=== PATIENT | male | born 1955 | race Caucasian/White ===

== ENCOUNTER 2018-06-26 12:03 | Inpatient (IN) ==
[2018-06-26] MEDS: PANTOPRAZOLE 40 MG TABLET PO SCH (14:56)
[2018-06-26] MEDS: FUROSEMIDE 40 MG/4 ML VIAL IV SCH (14:57)
[2018-06-26 15:14] LABS: Apearance,Urine CLEAR (Clear); Bacteria,Urine Occasional /HPF (Few); Bilirubin,Urine Negative (Negative); Blood, Urine Moderate mg/dL (Negative); Glucose,Urine (UA) Negative (Negative); Ketones,Urine Negative (Negative); Nitrite,Urine Negative (Negative); Protein,Urine Negative; RBC,Urine <1 /HPF (0-4); Urine Color Straw (Yellow); Urine Specific Gravity 1.002 (1.001-1.035); Urine Urobilinogen < 2.0 EU/DL (0.2-1.0); WBC,Urine <1 /HPF (0-6)
[2018-06-26] MEDS: DUTASTERIDE 0.5 MG CAPSULE PO SCH (16:33)
[2018-06-26] MEDS: DOCUSATE SODIUM 100 MG CAPSULE PO SCH (23:18)
[2018-06-26] MEDS: ENOXAPARIN 30 MG/0.3 ML SYRINGE SUBCUT SCH (23:18)
[2018-06-26] MEDS: TAMSULOSIN 0.4 MG CAPSULE PO SCH (23:18)
[2018-06-27 04:07] LABS: Basophils % 0.4 % (0.0-0.8); Eosinophils # 0.2 10*3/uL (0.0-0.87); Eosinophils % 1.9 % (0.00-10.9); Hematocrit 33.3 VOL% (42.0-52.0); Hemoglobin 11.5 GM/DL (14.0-18.0); Immature Granulocytes % 0.4 %; Immature Granulocytes Absolute 0.03 #; Lymphocytes # 1.3 10*3/uL (1.4-4.0); Lymphocytes % 15.8 % (21.2-54.2); Mean Corpuscular HGB Conc 34.5 GM/DL (32-36); Mean Corpuscular Hemoglobin 32 PG (27-34); Mean Corpuscular Volume 91.5 FL (87-102); Mean Platelet Volume 11.8 FL (9.6-12.0); Monocytes # 0.6 10*3/uL (0.11-0.8); Monocytes % 7.2 % (1.7-12.7); Neutrophils # 5.9 10*3/uL (1.4-7.4); Neutrophils % 74.3 % (38.7-73.9); Platelet Count 164 T/CUMM (130-400); Red Blood Count 3.64 MC/CUMM (3.8-5.5); Red Cell Distribution Width 12.7 % (9.3-17.3); White Blood Count 7.9 T/CUMM (4-12)
[2018-06-27 05:04] LABS: Bilirubin,Total 0.6 MG/DL (0.2-1.0); Calcium 8.1 MG/DL (8.5-10.1); Total Protein 5.9 G/DL (6.4-8.3)
[2018-06-27 05:06] LABS: Potassium 3.6 MMOL/L (3.5-5.1)
[2018-06-27 05:07] LABS: Osmolality,Calculated 284.5 MOS/KG (273-304)
[2018-06-27] MEDS ORDERED: PYG PO SCH (09:00)
[2018-06-27] MEDS ORDERED: VIT E PO SCH (09:00)
[2018-06-27] MEDS ORDERED: BETA PO SCH (09:00)
[2018-06-27] MEDS ORDERED: SOD SEL PO SCH (09:00)
[2018-06-27] MEDS ORDERED: SAW PO SCH (09:00)
[2018-06-27] MEDS ORDERED: LYC PO SCH (09:00)
[2018-06-27] MEDS: DOCUSATE SODIUM 100 MG CAPSULE PO SCH ×2 (09:29→21:29)
[2018-06-27] MEDS: TAMSULOSIN 0.4 MG CAPSULE PO SCH ×3 (09:29→21:29)
[2018-06-27] MEDS: PANTOPRAZOLE 40 MG TABLET PO SCH (09:29)
[2018-06-27] MEDS: FUROSEMIDE 40 MG/4 ML VIAL IV SCH (09:29)
[2018-06-27] MEDS: DUTASTERIDE 0.5 MG CAPSULE PO SCH (09:29)
[2018-06-27] MEDS: GABAPENTIN 300 MG CAPSULE PO SCH ×3 (09:33→21:29)
[2018-06-27] MEDS: ATENOLOL 25 MG TABLET PO SCH (09:33)
[2018-06-27] MEDS: SIMVASTATIN 20 MG TABLET PO SCH (21:29)
[2018-06-27] MEDS: SERTRALINE 50 MG TABLET PO SCH (21:29)
[2018-06-27] MEDS: ENOXAPARIN 30 MG/0.3 ML SYRINGE SUBCUT SCH (21:29)
[2018-06-27] MEDS: EZETIMIBE 10 MG TABLET PO SCH (21:29)
[2018-06-28 02:52] LABS: Basophils % 0.6 % (0.0-0.8); Eosinophils # 0.2 10*3/uL (0.0-0.87); Hematocrit 33.2 VOL% (42.0-52.0); Hemoglobin 11.2 GM/DL (14.0-18.0); Immature Granulocytes % 0.3 %; Immature Granulocytes Absolute 0.02 #; Lymphocytes # 1.5 10*3/uL (1.4-4.0); Mean Corpuscular HGB Conc 33.7 GM/DL (32-36); Mean Corpuscular Hemoglobin 32 PG (27-34); Mean Corpuscular Volume 93.3 FL (87-102); Mean Platelet Volume 11.9 FL (9.6-12.0); Monocytes # 0.6 10*3/uL (0.11-0.8); Neutrophils # 4.3 10*3/uL (1.4-7.4); Neutrophils % 64.1 % (38.7-73.9); Platelet Count 161 T/CUMM (130-400); Red Blood Count 3.56 MC/CUMM (3.8-5.5); Red Cell Distribution Width 12.8 % (9.3-17.3); White Blood Count 6.6 T/CUMM (4-12)
[2018-06-28 03:24] LABS: Calcium 8.2 MG/DL (8.5-10.1); Calcium 8.3 MG/DL (8.5-10.1); Osmolality,Calculated 281.1 MOS/KG (273-304); Potassium 3.4 MMOL/L (3.5-5.1)
[2018-06-28] MEDS: FUROSEMIDE 40 MG/4 ML VIAL IV SCH (08:40)
[2018-06-28] MEDS: DUTASTERIDE 0.5 MG CAPSULE PO SCH (08:41)
[2018-06-28] MEDS: PANTOPRAZOLE 40 MG TABLET PO SCH (08:41)
[2018-06-28] MEDS: TAMSULOSIN 0.4 MG CAPSULE PO SCH ×3 (08:41→20:49)
[2018-06-28] MEDS: POTASSIUM CHLORIDE 20 MEQ TABLET PO PRN ×2 (08:41→14:53)
[2018-06-28] MEDS: DOCUSATE SODIUM 100 MG CAPSULE PO SCH ×3 (08:41→20:50)
[2018-06-28] MEDS: GABAPENTIN 300 MG CAPSULE PO SCH ×3 (08:41→20:50)
[2018-06-28] MEDS: ASPIRIN EC 81 MG TABLET PO SCH (08:42)
[2018-06-28] MEDS: ATENOLOL 25 MG TABLET PO SCH (08:43)
[2018-06-28] MEDS: ACETAMINOPHEN 325 MG TABLET PO PRN (14:31)
[2018-06-28] MEDS: SERTRALINE 50 MG TABLET PO SCH (20:49)
[2018-06-28] MEDS: SIMVASTATIN 20 MG TABLET PO SCH (20:49)
[2018-06-28] MEDS: EZETIMIBE 10 MG TABLET PO SCH (20:49)
[2018-06-28] MEDS: ENOXAPARIN 30 MG/0.3 ML SYRINGE SUBCUT SCH (20:50)
[2018-06-29 04:33] LABS: Basophils # 0.1 10*3/uL (0.0-0.2); Basophils % 0.7 % (0.0-0.8); Eosinophils # 0.3 10*3/uL (0.0-0.87); Eosinophils % 3.9 % (0.00-10.9); Hematocrit 34.8 VOL% (42.0-52.0); Hemoglobin 11.8 GM/DL (14.0-18.0); Immature Granulocytes % 0.6 %; Immature Granulocytes Absolute 0.04 #; Lymphocytes # 1.3 10*3/uL (1.4-4.0); Lymphocytes % 19.9 % (21.2-54.2); Mean Corpuscular HGB Conc 33.9 GM/DL (32-36); Mean Corpuscular Hemoglobin 32 PG (27-34); Mean Corpuscular Volume 93.3 FL (87-102); Mean Platelet Volume 11.6 FL (9.6-12.0); Monocytes # 0.6 10*3/uL (0.11-0.8); Monocytes % 8.9 % (1.7-12.7); Neutrophils # 4.5 10*3/uL (1.4-7.4); Platelet Count 180 T/CUMM (130-400); Red Blood Count 3.73 MC/CUMM (3.8-5.5); White Blood Count 6.8 T/CUMM (4-12)
[2018-06-29 04:58] LABS: Calcium 8.6 MG/DL (8.5-10.1); Osmolality,Calculated 286.7 MOS/KG (273-304)
[2018-06-29] MEDS: GABAPENTIN 300 MG CAPSULE PO SCH ×3 (08:39→21:02)
[2018-06-29] MEDS: ATENOLOL 25 MG TABLET PO SCH (08:40)
[2018-06-29] MEDS: TAMSULOSIN 0.4 MG CAPSULE PO SCH ×3 (08:40→21:02)
[2018-06-29] MEDS: DUTASTERIDE 0.5 MG CAPSULE PO SCH (08:40)
[2018-06-29] MEDS: DOCUSATE SODIUM 100 MG CAPSULE PO SCH ×2 (08:40→21:02)
[2018-06-29] MEDS: ASPIRIN EC 81 MG TABLET PO SCH (08:40)
[2018-06-29] MEDS: PANTOPRAZOLE 40 MG TABLET PO SCH (08:40)
[2018-06-29] MEDS: ENOXAPARIN 30 MG/0.3 ML SYRINGE SUBCUT SCH (21:02)
[2018-06-29] MEDS: SERTRALINE 50 MG TABLET PO SCH (21:02)
[2018-06-29] MEDS: SIMVASTATIN 20 MG TABLET PO SCH (21:02)
[2018-06-29] MEDS: EZETIMIBE 10 MG TABLET PO SCH (21:02)
[2018-06-30 04:04] LABS: Basophils % 0.6 % (0.0-0.8); Eosinophils # 0.2 10*3/uL (0.0-0.87); Eosinophils % 2.6 % (0.00-10.9); Hematocrit 32.9 VOL% (42.0-52.0); Hemoglobin 11.1 GM/DL (14.0-18.0); Immature Granulocytes % 0.4 %; Immature Granulocytes Absolute 0.03 #; Lymphocytes # 1.3 10*3/uL (1.4-4.0); Mean Corpuscular HGB Conc 33.7 GM/DL (32-36); Mean Corpuscular Hemoglobin 32 PG (27-34); Mean Corpuscular Volume 93.7 FL (87-102); Mean Platelet Volume 11.6 FL (9.6-12.0); Monocytes # 0.6 10*3/uL (0.11-0.8); Monocytes % 7.7 % (1.7-12.7); Neutrophils # 5.1 10*3/uL (1.4-7.4); Neutrophils % 70.7 % (38.7-73.9); Platelet Count 166 T/CUMM (130-400); Red Blood Count 3.51 MC/CUMM (3.8-5.5); Red Cell Distribution Width 13.1 % (9.3-17.3); White Blood Count 7.2 T/CUMM (4-12)
[2018-06-30 04:22] LABS: Calcium 8.5 MG/DL (8.5-10.1); Osmolality,Calculated 288.7 MOS/KG (273-304); Potassium 4.1 MMOL/L (3.5-5.1)
[2018-06-30] MEDS: SODIUM CHLORIDE 0.9% 1,000 ML IV SCH ×2 (09:43→22:45)
[2018-06-30] MEDS: DUTASTERIDE 0.5 MG CAPSULE PO SCH (09:52)
[2018-06-30] MEDS: DOCUSATE SODIUM 100 MG CAPSULE PO SCH ×2 (09:52→21:17)
[2018-06-30] MEDS: ASPIRIN EC 81 MG TABLET PO SCH (09:52)
[2018-06-30] MEDS: TAMSULOSIN 0.4 MG CAPSULE PO SCH ×3 (09:52→21:17)
[2018-06-30] MEDS: ATENOLOL 25 MG TABLET PO SCH (09:53)
[2018-06-30] MEDS: PANTOPRAZOLE 40 MG TABLET PO SCH (09:53)
[2018-06-30] MEDS: GABAPENTIN 300 MG CAPSULE PO SCH ×3 (09:53→21:17)
[2018-06-30] MEDS: EZETIMIBE 10 MG TABLET PO SCH (21:17)
[2018-06-30] MEDS: SIMVASTATIN 20 MG TABLET PO SCH (21:17)
[2018-06-30] MEDS: SERTRALINE 50 MG TABLET PO SCH (21:17)
[2018-06-30] MEDS: ENOXAPARIN 30 MG/0.3 ML SYRINGE SUBCUT SCH (21:17)
[2018-07-01 04:15] LABS: Calcium 8.2 MG/DL (8.5-10.1); Osmolality,Calculated 291.5 MOS/KG (273-304); Potassium 4.5 MMOL/L (3.5-5.1)
[2018-07-01] MEDS: ASPIRIN EC 81 MG TABLET PO SCH (08:28)
[2018-07-01] MEDS: GABAPENTIN 300 MG CAPSULE PO SCH ×3 (08:28→21:27)
[2018-07-01] MEDS: DUTASTERIDE 0.5 MG CAPSULE PO SCH (08:29)
[2018-07-01] MEDS: TAMSULOSIN 0.4 MG CAPSULE PO SCH ×3 (08:29→21:20)
[2018-07-01] MEDS: PANTOPRAZOLE 40 MG TABLET PO SCH (08:29)
[2018-07-01] MEDS: ATENOLOL 25 MG TABLET PO SCH (08:29)
[2018-07-01] MEDS: DOCUSATE SODIUM 100 MG CAPSULE PO SCH ×2 (08:29→21:20)
[2018-07-01] MEDS: SODIUM CHLORIDE 0.9% 1,000 ML IV SCH (12:26)
[2018-07-01 16:18] LABS: Apearance,Urine CLEAR (Clear); Bilirubin,Urine Negative (Negative); Blood, Urine Large mg/dL (Negative); Glucose,Urine (UA) Negative (Negative); Ketones,Urine Negative (Negative); Nitrite,Urine Negative (Negative); Protein,Urine 100 MG/DL; RBC,Urine 40 /HPF (0-4); Urine Specific Gravity 1.004 (1.001-1.035); Urine Urobilinogen < 2.0 EU/DL (0.2-1.0); WBC,Urine 3 /HPF (0-6)
[2018-07-01 16:19] LABS: Urine Color Red (Yellow)
[2018-07-01] MEDS: EZETIMIBE 10 MG TABLET PO SCH (21:20)
[2018-07-01] MEDS: SERTRALINE 50 MG TABLET PO SCH (21:20)
[2018-07-01] MEDS: SIMVASTATIN 20 MG TABLET PO SCH (21:20)
[2018-07-01] MEDS: ENOXAPARIN 30 MG/0.3 ML SYRINGE SUBCUT SCH (21:27)
[2018-07-02] MEDS: SODIUM CHLORIDE 0.9% 1,000 ML IV SCH ×2 (01:15→16:03)
[2018-07-02 03:34] LABS: Calcium 8.1 MG/DL (8.5-10.1); Osmolality,Calculated 297.1 MOS/KG (273-304); Potassium 4.7 MMOL/L (3.5-5.1)
[2018-07-02] MEDS: GABAPENTIN 300 MG CAPSULE PO SCH ×3 (08:36→20:50)
[2018-07-02] MEDS: DOCUSATE SODIUM 100 MG CAPSULE PO SCH ×2 (08:37→20:50)
[2018-07-02] MEDS: DUTASTERIDE 0.5 MG CAPSULE PO SCH (08:37)
[2018-07-02] MEDS: PANTOPRAZOLE 40 MG TABLET PO SCH (08:37)
[2018-07-02] MEDS: ATENOLOL 25 MG TABLET PO SCH (08:37)
[2018-07-02] MEDS: TAMSULOSIN 0.4 MG CAPSULE PO SCH ×3 (08:37→20:50)
[2018-07-02] MEDS: ASPIRIN EC 81 MG TABLET PO SCH (08:37)
[2018-07-02] MEDS ORDERED: FUROSEMIDE 40 MG/4 ML VIAL IV ONE (13:01)
[2018-07-02] MEDS ORDERED: ALBUTEROL 1.25 MG/3 ML NEB RESP TX PRN (13:02)
[2018-07-02] MEDS: ALBUTEROL 1.25 MG/3 ML NEB RESP TX SCH (18:56)
[2018-07-02] MEDS: EZETIMIBE 10 MG TABLET PO SCH (20:50)
[2018-07-02] MEDS: SIMVASTATIN 20 MG TABLET PO SCH (20:50)
[2018-07-02] MEDS: SERTRALINE 50 MG TABLET PO SCH (20:50)
[2018-07-02] MEDS: ENOXAPARIN 30 MG/0.3 ML SYRINGE SUBCUT SCH (20:50)
[2018-07-03 07:02] LABS: Basophils % 0.5 % (0.0-0.8); Eosinophils # 0.2 10*3/uL (0.0-0.87); Eosinophils % 2.6 % (0.00-10.9); Hematocrit 32.8 VOL% (42.0-52.0); Hemoglobin 10.7 GM/DL (14.0-18.0); Immature Granulocytes % 0.5 %; Immature Granulocytes Absolute 0.03 #; Lymphocytes # 0.9 10*3/uL (1.4-4.0); Lymphocytes % 14.2 % (21.2-54.2); Mean Corpuscular HGB Conc 32.6 GM/DL (32-36); Mean Corpuscular Hemoglobin 31 PG (27-34); Mean Corpuscular Volume 95.6 FL (87-102); Mean Platelet Volume 11.2 FL (9.6-12.0); Monocytes # 0.4 10*3/uL (0.11-0.8); Monocytes % 6.3 % (1.7-12.7); Neutrophils # 4.9 10*3/uL (1.4-7.4); Neutrophils % 75.9 % (38.7-73.9); Platelet Count 156 T/CUMM (130-400); Red Blood Count 3.43 MC/CUMM (3.8-5.5); Red Cell Distribution Width 13.8 % (9.3-17.3); White Blood Count 6.5 T/CUMM (4-12)
[2018-07-03] MEDS: ALBUTEROL 1.25 MG/3 ML NEB RESP TX SCH ×2 (07:18→19:47)
[2018-07-03 07:38] LABS: Calcium 8.7 MG/DL (8.5-10.1); Osmolality,Calculated 296.3 MOS/KG (273-304); Potassium 4.7 MMOL/L (3.5-5.1)
[2018-07-03] MEDS: PANTOPRAZOLE 40 MG TABLET PO SCH (08:36)
[2018-07-03] MEDS: ATENOLOL 25 MG TABLET PO SCH (08:36)
[2018-07-03] MEDS: ASPIRIN EC 81 MG TABLET PO SCH (08:36)
[2018-07-03] MEDS: GABAPENTIN 300 MG CAPSULE PO SCH ×3 (08:36→20:56)
[2018-07-03] MEDS: DOCUSATE SODIUM 100 MG CAPSULE PO SCH ×2 (08:36→20:56)
[2018-07-03] MEDS: DUTASTERIDE 0.5 MG CAPSULE PO SCH (08:36)
[2018-07-03] MEDS: TAMSULOSIN 0.4 MG CAPSULE PO SCH ×3 (08:37→20:56)
[2018-07-03] MEDS: FUROSEMIDE 20 MG TABLET PO SCH (08:40)
[2018-07-03] MEDS: SODIUM CHLORIDE 0.9% 1,000 ML IV SCH (11:55)
[2018-07-03] MEDS: ENOXAPARIN 30 MG/0.3 ML SYRINGE SUBCUT SCH (20:56)
[2018-07-03] MEDS: SIMVASTATIN 20 MG TABLET PO SCH (20:56)
[2018-07-03] MEDS: EZETIMIBE 10 MG TABLET PO SCH (20:56)
[2018-07-03] MEDS: SERTRALINE 50 MG TABLET PO SCH (20:56)
[2018-07-04 03:47] LABS: Calcium 8.2 MG/DL (8.5-10.1); Osmolality,Calculated 295.3 MOS/KG (273-304); Potassium 4.4 MMOL/L (3.5-5.1)
[2018-07-04] MEDS: ALBUTEROL 1.25 MG/3 ML NEB RESP TX SCH ×2 (07:17→19:22)
[2018-07-04] MEDS: FUROSEMIDE 20 MG TABLET PO SCH ×2 (08:05→08:17)
[2018-07-04] MEDS: TAMSULOSIN 0.4 MG CAPSULE PO SCH ×3 (08:17→21:26)
[2018-07-04] MEDS: GABAPENTIN 300 MG CAPSULE PO SCH ×3 (08:17→21:26)
[2018-07-04] MEDS: DOCUSATE SODIUM 100 MG CAPSULE PO SCH ×2 (08:17→21:26)
[2018-07-04] MEDS: ASPIRIN EC 81 MG TABLET PO SCH (08:17)
[2018-07-04] MEDS: DUTASTERIDE 0.5 MG CAPSULE PO SCH (08:17)
[2018-07-04] MEDS: PANTOPRAZOLE 40 MG TABLET PO SCH (08:17)
[2018-07-04] MEDS: ATENOLOL 25 MG TABLET PO SCH (08:17)
[2018-07-04] MEDS: SODIUM CHLORIDE 0.9% 1,000 ML IV SCH (11:16)
[2018-07-04] MEDS: ONDANSETRON 4 MG/2 ML VIAL IV PRN (14:24)
[2018-07-04] MEDS: SIMVASTATIN 20 MG TABLET PO SCH (21:26)
[2018-07-04] MEDS: ENOXAPARIN 30 MG/0.3 ML SYRINGE SUBCUT SCH (21:26)
[2018-07-04] MEDS: EZETIMIBE 10 MG TABLET PO SCH (21:26)
[2018-07-04] MEDS: SERTRALINE 50 MG TABLET PO SCH (21:27)
[2018-07-05 05:30] LABS: Calcium 8.3 MG/DL (8.5-10.1); Osmolality,Calculated 296.3 MOS/KG (273-304); Potassium 4.7 MMOL/L (3.5-5.1)
[2018-07-05] MEDS: ALBUTEROL 1.25 MG/3 ML NEB RESP TX SCH ×2 (07:12→19:28)
[2018-07-05] MEDS: ASPIRIN EC 81 MG TABLET PO SCH (08:06)
[2018-07-05] MEDS: PANTOPRAZOLE 40 MG TABLET PO SCH (08:06)
[2018-07-05] MEDS: DUTASTERIDE 0.5 MG CAPSULE PO SCH (08:06)
[2018-07-05] MEDS: DOCUSATE SODIUM 100 MG CAPSULE PO SCH ×2 (08:10→21:00)
[2018-07-05] MEDS: TAMSULOSIN 0.4 MG CAPSULE PO SCH ×3 (08:10→21:00)
[2018-07-05] MEDS: ATENOLOL 25 MG TABLET PO SCH (08:12)
[2018-07-05] MEDS: GABAPENTIN 300 MG CAPSULE PO SCH ×3 (08:18→21:00)
[2018-07-05] MEDS ORDERED: FUROSEMIDE 100 MG/10 ML VIAL IV ONE (09:53)
[2018-07-05] MEDS: EZETIMIBE 10 MG TABLET PO SCH (21:00)
[2018-07-05] MEDS: SERTRALINE 50 MG TABLET PO SCH (21:00)
[2018-07-05] MEDS: SIMVASTATIN 20 MG TABLET PO SCH (21:00)
[2018-07-05] MEDS: ENOXAPARIN 30 MG/0.3 ML SYRINGE SUBCUT SCH (21:02)
[2018-07-06 05:14] LABS: Basophils % 0.7 % (0.0-0.8); Eosinophils # 0.1 10*3/uL (0.0-0.87); Eosinophils % 2.4 % (0.00-10.9); Hematocrit 32.5 VOL% (42.0-52.0); Hemoglobin 10.4 GM/DL (14.0-18.0); Immature Granulocytes % 0.8 %; Immature Granulocytes Absolute 0.05 #; Lymphocytes # 0.9 10*3/uL (1.4-4.0); Lymphocytes % 14.9 % (21.2-54.2); Mean Corpuscular Hemoglobin 31 PG (27-34); Mean Corpuscular Volume 97.9 FL (87-102); Monocytes # 0.5 10*3/uL (0.11-0.8); Monocytes % 8.5 % (1.7-12.7); Neutrophils # 4.3 10*3/uL (1.4-7.4); Neutrophils % 72.7 % (38.7-73.9); Platelet Count 157 T/CUMM (130-400); Red Blood Count 3.32 MC/CUMM (3.8-5.5); Red Cell Distribution Width 13.6 % (9.3-17.3); White Blood Count 5.9 T/CUMM (4-12)
[2018-07-06 05:39] LABS: Calcium 8.7 MG/DL (8.5-10.1); Osmolality,Calculated 298.1 MOS/KG (273-304); Potassium 4.2 MMOL/L (3.5-5.1)
[2018-07-06] MEDS: ALBUTEROL 1.25 MG/3 ML NEB RESP TX SCH ×2 (07:35→19:05)
[2018-07-06] MEDS: DUTASTERIDE 0.5 MG CAPSULE PO SCH (08:24)
[2018-07-06] MEDS: TAMSULOSIN 0.4 MG CAPSULE PO SCH ×3 (08:25→21:05)
[2018-07-06] MEDS: PANTOPRAZOLE 40 MG TABLET PO SCH (08:25)
[2018-07-06] MEDS: GABAPENTIN 300 MG CAPSULE PO SCH ×3 (08:25→21:05)
[2018-07-06] MEDS: FUROSEMIDE 80 MG TABLET PO SCH (08:25)
[2018-07-06] MEDS: DOCUSATE SODIUM 100 MG CAPSULE PO SCH ×2 (08:25→21:05)
[2018-07-06] MEDS: ASPIRIN EC 81 MG TABLET PO SCH (08:25)
[2018-07-06] MEDS: ATENOLOL 25 MG TABLET PO SCH (08:25)
[2018-07-06] MEDS: EZETIMIBE 10 MG TABLET PO SCH (21:05)
[2018-07-06] MEDS: SERTRALINE 50 MG TABLET PO SCH (21:05)
[2018-07-06] MEDS: SIMVASTATIN 20 MG TABLET PO SCH (21:05)
[2018-07-06] MEDS: ENOXAPARIN 30 MG/0.3 ML SYRINGE SUBCUT SCH (21:07)
[2018-07-07] MEDS: ALBUTEROL 1.25 MG/3 ML NEB RESP TX SCH ×2 (07:02→18:52)
[2018-07-07] MEDS: DOCUSATE SODIUM 100 MG CAPSULE PO SCH ×2 (08:35→22:32)
[2018-07-07] MEDS: DUTASTERIDE 0.5 MG CAPSULE PO SCH (08:35)
[2018-07-07] MEDS: ASPIRIN EC 81 MG TABLET PO SCH (08:35)
[2018-07-07] MEDS: FUROSEMIDE 80 MG TABLET PO SCH (08:37)
[2018-07-07] MEDS: TAMSULOSIN 0.4 MG CAPSULE PO SCH ×3 (08:37→22:32)
[2018-07-07] MEDS: PANTOPRAZOLE 40 MG TABLET PO SCH (08:38)
[2018-07-07] MEDS: GABAPENTIN 300 MG CAPSULE PO SCH ×3 (08:38→22:31)
[2018-07-07] MEDS: ATENOLOL 25 MG TABLET PO SCH (08:39)
[2018-07-07 09:57] LABS: Calcium 8.8 MG/DL (8.5-10.1); Osmolality,Calculated 297.1 MOS/KG (273-304); Potassium 3.9 MMOL/L (3.5-5.1)
[2018-07-07] MEDS: FLUTICASONE/SALMETEROL 250-50 DISKUS 14 DOSE INH SCH ×2 (11:32→22:33)
[2018-07-07] MEDS ORDERED: FUROSEMIDE 40 MG TABLET PO SCH (12:00)
[2018-07-07] MEDS: EZETIMIBE 10 MG TABLET PO SCH (22:31)
[2018-07-07] MEDS: SERTRALINE 50 MG TABLET PO SCH (22:32)
[2018-07-07] MEDS: SIMVASTATIN 20 MG TABLET PO SCH (22:32)
[2018-07-07] MEDS: ENOXAPARIN 30 MG/0.3 ML SYRINGE SUBCUT SCH (22:33)
[2018-07-08 05:06] LABS: Calcium 8.4 MG/DL (8.5-10.1); Osmolality,Calculated 295.1 MOS/KG (273-304); Potassium 3.3 MMOL/L (3.5-5.1)
[2018-07-08] MEDS: POTASSIUM CHLORIDE 20 MEQ TABLET PO PRN ×2 (05:43→07:43)
[2018-07-08] MEDS: ALBUTEROL 1.25 MG/3 ML NEB RESP TX SCH ×2 (07:12→19:25)
[2018-07-08] MEDS: POTASSIUM CHLORIDE 8 MEQ CAPSULE PO SCH (11:22)
[2018-07-08] MEDS: ASPIRIN EC 81 MG TABLET PO SCH (11:23)
[2018-07-08] MEDS: TAMSULOSIN 0.4 MG CAPSULE PO SCH ×2 (11:23→21:29)
[2018-07-08] MEDS: GABAPENTIN 300 MG CAPSULE PO SCH ×3 (11:23→21:29)
[2018-07-08] MEDS: DOCUSATE SODIUM 100 MG CAPSULE PO SCH ×2 (11:23→21:29)
[2018-07-08] MEDS: ATENOLOL 25 MG TABLET PO SCH (11:23)
[2018-07-08] MEDS: PANTOPRAZOLE 40 MG TABLET PO SCH (11:23)
[2018-07-08] MEDS: FLUTICASONE/SALMETEROL 250-50 DISKUS 14 DOSE INH SCH ×2 (11:23→21:29)
[2018-07-08] MEDS: FUROSEMIDE 40 MG TABLET PO SCH (11:23)
[2018-07-08] MEDS: DUTASTERIDE 0.5 MG CAPSULE PO SCH (11:23)
[2018-07-08] MEDS: ONDANSETRON 4 MG/2 ML VIAL IV PRN (12:48)
[2018-07-08] MEDS: SERTRALINE 50 MG TABLET PO SCH (21:28)
[2018-07-08] MEDS: ENOXAPARIN 30 MG/0.3 ML SYRINGE SUBCUT SCH (21:29)
[2018-07-08] MEDS: EZETIMIBE 10 MG TABLET PO SCH (21:29)
[2018-07-08] MEDS: SIMVASTATIN 20 MG TABLET PO SCH (21:29)
[2018-07-09 05:20] LABS: Calcium 8.4 MG/DL (8.5-10.1); Osmolality,Calculated 290.5 MOS/KG (273-304); Potassium 3.4 MMOL/L (3.5-5.1)
[2018-07-09] MEDS: POTASSIUM CHLORIDE 20 MEQ TABLET PO PRN ×3 (05:33→11:46)
[2018-07-09] MEDS: ALBUTEROL 1.25 MG/3 ML NEB RESP TX SCH ×2 (07:35→19:29)
[2018-07-09] MEDS: FLUTICASONE/SALMETEROL 250-50 DISKUS 14 DOSE INH SCH ×2 (09:02→20:54)
[2018-07-09] MEDS: DUTASTERIDE 0.5 MG CAPSULE PO SCH (09:02)
[2018-07-09] MEDS: PANTOPRAZOLE 40 MG TABLET PO SCH (09:02)
[2018-07-09] MEDS: FUROSEMIDE 40 MG TABLET PO SCH (09:02)
[2018-07-09] MEDS: GABAPENTIN 300 MG CAPSULE PO SCH ×3 (09:02→20:53)
[2018-07-09] MEDS: ASPIRIN EC 81 MG TABLET PO SCH (09:03)
[2018-07-09] MEDS: ATENOLOL 25 MG TABLET PO SCH (09:03)
[2018-07-09] MEDS: TAMSULOSIN 0.4 MG CAPSULE PO SCH ×2 (09:03→20:53)
[2018-07-09] MEDS: DOCUSATE SODIUM 100 MG CAPSULE PO SCH ×2 (09:03→20:53)
[2018-07-09] MEDS: POTASSIUM CHLORIDE 8 MEQ CAPSULE PO SCH (09:03)
[2018-07-09] MEDS: ENOXAPARIN 30 MG/0.3 ML SYRINGE SUBCUT SCH (20:53)
[2018-07-09] MEDS: EZETIMIBE 10 MG TABLET PO SCH (20:53)
[2018-07-09] MEDS: SIMVASTATIN 20 MG TABLET PO SCH (20:53)
[2018-07-09] MEDS: SERTRALINE 50 MG TABLET PO SCH (20:53)
[2018-07-09] MEDS: ACETAMINOPHEN 325 MG TABLET PO PRN (20:54)
[2018-07-10 04:35] LABS: Calcium 8.3 MG/DL (8.5-10.1); Osmolality,Calculated 290.5 MOS/KG (273-304); Potassium 3.7 MMOL/L (3.5-5.1)
[2018-07-10] MEDS: ALBUTEROL 1.25 MG/3 ML NEB RESP TX SCH ×2 (07:30→19:10)
[2018-07-10] MEDS ORDERED: cefTRIAXone 1,000 MG in SYRINGE 1 EACH IV ONE (08:20)
[2018-07-10] MEDS: FUROSEMIDE 40 MG TABLET PO SCH (09:21)
[2018-07-10] MEDS: TAMSULOSIN 0.4 MG CAPSULE PO SCH ×2 (09:21→21:07)
[2018-07-10] MEDS: ATENOLOL 25 MG TABLET PO SCH (09:21)
[2018-07-10] MEDS: PANTOPRAZOLE 40 MG TABLET PO SCH (09:21)
[2018-07-10] MEDS: DUTASTERIDE 0.5 MG CAPSULE PO SCH (09:21)
[2018-07-10] MEDS: DOCUSATE SODIUM 100 MG CAPSULE PO SCH ×2 (09:21→21:07)
[2018-07-10] MEDS: POTASSIUM CHLORIDE 8 MEQ CAPSULE PO SCH (09:21)
[2018-07-10] MEDS: GABAPENTIN 300 MG CAPSULE PO SCH ×3 (09:21→21:07)
[2018-07-10] MEDS: ASPIRIN EC 81 MG TABLET PO SCH (09:21)
[2018-07-10] MEDS: FLUTICASONE/SALMETEROL 250-50 DISKUS 14 DOSE INH SCH ×2 (09:24→21:05)
[2018-07-10] MEDS: ACETAMINOPHEN 325 MG TABLET PO PRN (15:49)
[2018-07-10] MEDS: ENOXAPARIN 30 MG/0.3 ML SYRINGE SUBCUT SCH (21:06)
[2018-07-10] MEDS: EZETIMIBE 10 MG TABLET PO SCH (21:07)
[2018-07-10] MEDS: SIMVASTATIN 20 MG TABLET PO SCH (21:07)
[2018-07-10] MEDS: SERTRALINE 50 MG TABLET PO SCH (21:07)
[2018-07-11 03:19] LABS: Basophils % 0.3 % (0.0-0.8); Eosinophils # 0.1 10*3/uL (0.0-0.87); Eosinophils % 0.6 % (0.00-10.9); Hematocrit 30.1 VOL% (42.0-52.0); Hemoglobin 9.9 GM/DL (14.0-18.0); Immature Granulocytes % 0.9 %; Lymphocytes # 0.9 10*3/uL (1.4-4.0); Lymphocytes % 7.8 % (21.2-54.2); Mean Corpuscular HGB Conc 32.9 GM/DL (32-36); Mean Corpuscular Hemoglobin 31 PG (27-34); Mean Corpuscular Volume 93.8 FL (87-102); Mean Platelet Volume 12.4 FL (9.6-12.0); Monocytes % 9.4 % (1.7-12.7); Neutrophils # 8.8 10*3/uL (1.4-7.4); Platelet Count 150 T/CUMM (130-400); Red Blood Count 3.21 MC/CUMM (3.8-5.5); Red Cell Distribution Width 13.4 % (9.3-17.3); White Blood Count 10.9 T/CUMM (4-12)
[2018-07-11 04:03] LABS: Calcium 8.4 MG/DL (8.5-10.1); Osmolality,Calculated 289.8 MOS/KG (273-304); Potassium 3.6 MMOL/L (3.5-5.1)
[2018-07-11] MEDS: ALBUTEROL 1.25 MG/3 ML NEB RESP TX SCH ×2 (07:38→19:43)
[2018-07-11] MEDS ORDERED: cefTRIAXone 1,000 MG in SYRINGE 1 EACH IV ONE (08:00)
[2018-07-11] MEDS: FLUTICASONE/SALMETEROL 250-50 DISKUS 14 DOSE INH SCH ×2 (08:30→22:48)
[2018-07-11] MEDS: GABAPENTIN 300 MG CAPSULE PO SCH ×4 (09:36→22:48)
[2018-07-11] MEDS ORDERED: SEVOFLURANE 1 UNIT/15 MINUTE INH ONE (11:26)
[2018-07-11] MEDS ORDERED: PROPOFOL 200 MG/20 ML VIAL IV ONE (11:26)
[2018-07-11] MEDS ORDERED: MIDAZOLAM 2 MG/2 ML VIAL ONE (11:26)
[2018-07-11] MEDS ORDERED: ACETAMINOPHEN 1,000 MG/100 ML VIAL IV ONE (11:27)
[2018-07-11] MEDS ORDERED: PHENYLEPHRINE 1 MG/10 ML SYRINGE IV ONE (11:27)
[2018-07-11] MEDS ORDERED: ONDANSETRON 4 MG/2 ML VIAL ONE (11:27)
[2018-07-11] MEDS ORDERED: fentaNYL 100 MCG/2 ML VIAL ONE (11:27)
[2018-07-11] MEDS ORDERED: GLYCOPYRROLATE 0.4 MG/2 ML VIAL ONE (11:27)
[2018-07-11] MEDS ORDERED: traMADol 50 MG TABLET PO PRN (12:32)
[2018-07-11] MEDS: DUTASTERIDE 0.5 MG CAPSULE PO SCH (12:45)
[2018-07-11] MEDS: POTASSIUM CHLORIDE 8 MEQ CAPSULE PO SCH (12:46)
[2018-07-11] MEDS: ASPIRIN EC 81 MG TABLET PO SCH (12:46)
[2018-07-11] MEDS: ATENOLOL 25 MG TABLET PO SCH (12:46)
[2018-07-11] MEDS: DOCUSATE SODIUM 100 MG CAPSULE PO SCH ×2 (12:46→22:48)
[2018-07-11] MEDS: TAMSULOSIN 0.4 MG CAPSULE PO SCH ×2 (12:47→22:47)
[2018-07-11] MEDS: PANTOPRAZOLE 40 MG TABLET PO SCH (12:54)
[2018-07-11] MEDS: HYDROmorphone 2 MG/1 ML VIAL IV PRN ×2 (14:13→20:50)
[2018-07-11] MEDS: SIMVASTATIN 20 MG TABLET PO SCH (22:47)
[2018-07-11] MEDS: SERTRALINE 50 MG TABLET PO SCH (22:48)
[2018-07-11] MEDS: ENOXAPARIN 30 MG/0.3 ML SYRINGE SUBCUT SCH (22:48)
[2018-07-11] MEDS: EZETIMIBE 10 MG TABLET PO SCH (22:48)
[2018-07-12 03:16] LABS: Calcium 8.4 MG/DL (8.5-10.1); Osmolality,Calculated 290.5 MOS/KG (273-304); Potassium 4.2 MMOL/L (3.5-5.1)
[2018-07-12] MEDS: ALBUTEROL 1.25 MG/3 ML NEB RESP TX SCH ×2 (07:09→19:39)
[2018-07-12] MEDS: DUTASTERIDE 0.5 MG CAPSULE PO SCH (08:30)
[2018-07-12] MEDS: POTASSIUM CHLORIDE 8 MEQ CAPSULE PO SCH (08:30)
[2018-07-12] MEDS: PANTOPRAZOLE 40 MG TABLET PO SCH (08:30)
[2018-07-12] MEDS: ASPIRIN EC 81 MG TABLET PO SCH (08:30)
[2018-07-12] MEDS: GABAPENTIN 300 MG CAPSULE PO SCH ×3 (08:30→22:21)
[2018-07-12] MEDS: TAMSULOSIN 0.4 MG CAPSULE PO SCH ×2 (08:30→22:22)
[2018-07-12] MEDS: DOCUSATE SODIUM 100 MG CAPSULE PO SCH ×2 (08:30→22:21)
[2018-07-12] MEDS: ATENOLOL 25 MG TABLET PO SCH (08:31)
[2018-07-12] MEDS: FLUTICASONE/SALMETEROL 250-50 DISKUS 14 DOSE INH SCH ×2 (08:33→22:22)
[2018-07-12] MEDS: HYDROmorphone 2 MG/1 ML VIAL IV PRN (08:35)
[2018-07-12] MEDS: EZETIMIBE 10 MG TABLET PO SCH (22:21)
[2018-07-12] MEDS: SIMVASTATIN 20 MG TABLET PO SCH (22:22)
[2018-07-12] MEDS: SERTRALINE 50 MG TABLET PO SCH (22:22)
[2018-07-13 03:45] LABS: Calcium 8.4 MG/DL (8.5-10.1); Osmolality,Calculated 284.4 MOS/KG (273-304); Potassium 3.6 MMOL/L (3.5-5.1)
[2018-07-13] MEDS: HYDROmorphone 2 MG/1 ML VIAL IV PRN ×3 (06:28→21:25)
[2018-07-13] MEDS: ALBUTEROL 1.25 MG/3 ML NEB RESP TX SCH ×2 (07:28→19:07)
[2018-07-13 08:07] LABS: Basophils % 0.3 % (0.0-0.8); Eosinophils # 0.2 10*3/uL (0.0-0.87); Eosinophils % 2.7 % (0.00-10.9); Hematocrit 29.6 VOL% (42.0-52.0); Hemoglobin 9.9 GM/DL (14.0-18.0); Immature Granulocytes % 0.7 %; Immature Granulocytes Absolute 0.06 #; Lymphocytes # 0.8 10*3/uL (1.4-4.0); Lymphocytes % 9.3 % (21.2-54.2); Mean Corpuscular HGB Conc 33.4 GM/DL (32-36); Mean Corpuscular Hemoglobin 32 PG (27-34); Mean Corpuscular Volume 95.8 FL (87-102); Mean Platelet Volume 11.6 FL (9.6-12.0); Monocytes # 0.7 10*3/uL (0.11-0.8); Monocytes % 7.5 % (1.7-12.7); Neutrophils % 79.5 % (38.7-73.9); Platelet Count 167 T/CUMM (130-400); Red Blood Count 3.09 MC/CUMM (3.8-5.5); Red Cell Distribution Width 13.5 % (9.3-17.3); White Blood Count 8.8 T/CUMM (4-12)
[2018-07-13 08:25] LABS: Albumin 2.7 G/DL (3.4-5.0); Bilirubin,Total 0.4 MG/DL (0.2-1.0); Calcium 8.6 MG/DL (8.5-10.1); Osmolality,Calculated 285.4 MOS/KG (273-304); Potassium 3.6 MMOL/L (3.5-5.1); Total Protein 6.3 G/DL (6.4-8.3)
[2018-07-13] MEDS: ASPIRIN EC 81 MG TABLET PO SCH (09:54)
[2018-07-13] MEDS: GABAPENTIN 300 MG CAPSULE PO SCH ×3 (09:54→21:25)
[2018-07-13] MEDS: PANTOPRAZOLE 40 MG TABLET PO SCH (09:55)
[2018-07-13] MEDS: ATENOLOL 25 MG TABLET PO SCH (09:55)
[2018-07-13] MEDS: POTASSIUM CHLORIDE 8 MEQ CAPSULE PO SCH (09:55)
[2018-07-13] MEDS: DOCUSATE SODIUM 100 MG CAPSULE PO SCH ×2 (09:55→21:25)
[2018-07-13] MEDS: DUTASTERIDE 0.5 MG CAPSULE PO SCH (09:55)
[2018-07-13] MEDS: hydrALAZINE 25 MG TABLET PO SCH ×2 (09:56→21:25)
[2018-07-13] MEDS: FLUTICASONE/SALMETEROL 250-50 DISKUS 14 DOSE INH SCH ×2 (09:57→21:25)
[2018-07-13] MEDS: TAMSULOSIN 0.4 MG CAPSULE PO SCH ×2 (10:00→21:25)
[2018-07-13] MEDS ORDERED: NICOTINE 7 MG/24 HR PATCH TRANSDERM PRN (18:19)
[2018-07-13] MEDS: SIMVASTATIN 20 MG TABLET PO SCH (21:25)
[2018-07-13] MEDS: EZETIMIBE 10 MG TABLET PO SCH (21:25)
[2018-07-13] MEDS: SERTRALINE 50 MG TABLET PO SCH (21:25)
[2018-07-14 03:09] LABS: Basophils % 0.3 % (0.0-0.8); Eosinophils # 0.2 10*3/uL (0.0-0.87); Eosinophils % 2.6 % (0.00-10.9); Immature Granulocytes % 0.3 %; Immature Granulocytes Absolute 0.03 #; Lymphocytes % 11.1 % (21.2-54.2); Mean Corpuscular HGB Conc 31.3 GM/DL (32-36); Mean Corpuscular Hemoglobin 30 PG (27-34); Mean Corpuscular Volume 96.1 FL (87-102); Mean Platelet Volume 12.3 FL (9.6-12.0); Monocytes # 0.7 10*3/uL (0.11-0.8); Monocytes % 8.5 % (1.7-12.7); Neutrophils # 6.7 10*3/uL (1.4-7.4); Neutrophils % 77.2 % (38.7-73.9); Platelet Count 186 T/CUMM (130-400); Red Blood Count 3.33 MC/CUMM (3.8-5.5); Red Cell Distribution Width 13.4 % (9.3-17.3); White Blood Count 8.7 T/CUMM (4-12)
[2018-07-14 03:27] LABS: Albumin 2.8 G/DL (3.4-5.0); Bilirubin,Total 0.5 MG/DL (0.2-1.0); Calcium 8.7 MG/DL (8.5-10.1); Osmolality,Calculated 283.4 MOS/KG (273-304); Potassium 3.5 MMOL/L (3.5-5.1); Total Protein 6.7 G/DL (6.4-8.3)
[2018-07-14] MEDS: ALBUTEROL 1.25 MG/3 ML NEB RESP TX SCH ×2 (06:58→19:12)
[2018-07-14] MEDS: PANTOPRAZOLE 40 MG TABLET PO SCH (09:36)
[2018-07-14] MEDS: DUTASTERIDE 0.5 MG CAPSULE PO SCH (09:36)
[2018-07-14] MEDS: GABAPENTIN 300 MG CAPSULE PO SCH ×3 (09:36→22:22)
[2018-07-14] MEDS: TAMSULOSIN 0.4 MG CAPSULE PO SCH ×2 (09:36→22:22)
[2018-07-14] MEDS: DOCUSATE SODIUM 100 MG CAPSULE PO SCH ×2 (09:37→22:22)
[2018-07-14] MEDS: hydrALAZINE 25 MG TABLET PO SCH ×2 (09:37→22:22)
[2018-07-14] MEDS: ASPIRIN EC 81 MG TABLET PO SCH (09:37)
[2018-07-14] MEDS: ATENOLOL 25 MG TABLET PO SCH (09:38)
[2018-07-14] MEDS: FLUTICASONE/SALMETEROL 250-50 DISKUS 14 DOSE INH SCH ×2 (09:38→22:23)
[2018-07-14] MEDS: POTASSIUM CHLORIDE 10 MEQ TABLET PO SCH (09:38)
[2018-07-14] MEDS: HYDROmorphone 2 MG/1 ML VIAL IV PRN (10:52)
[2018-07-14] MEDS: EZETIMIBE 10 MG TABLET PO SCH (22:21)
[2018-07-14] MEDS: SIMVASTATIN 20 MG TABLET PO SCH (22:22)
[2018-07-14] MEDS: SERTRALINE 50 MG TABLET PO SCH (22:22)
[2018-07-15 03:16] LABS: Basophils % 0.4 % (0.0-0.8); Eosinophils # 0.2 10*3/uL (0.0-0.87); Eosinophils % 2.5 % (0.00-10.9); Hematocrit 31.2 VOL% (42.0-52.0); Hemoglobin 9.9 GM/DL (14.0-18.0); Immature Granulocytes % 0.4 %; Immature Granulocytes Absolute 0.03 #; Lymphocytes # 1.1 10*3/uL (1.4-4.0); Lymphocytes % 14.3 % (21.2-54.2); Mean Corpuscular HGB Conc 31.7 GM/DL (32-36); Mean Corpuscular Hemoglobin 30 PG (27-34); Mean Platelet Volume 11.9 FL (9.6-12.0); Monocytes # 0.7 10*3/uL (0.11-0.8); Monocytes % 8.5 % (1.7-12.7); Neutrophils # 5.6 10*3/uL (1.4-7.4); Neutrophils % 73.9 % (38.7-73.9); Platelet Count 196 T/CUMM (130-400); Red Blood Count 3.32 MC/CUMM (3.8-5.5); Red Cell Distribution Width 13.3 % (9.3-17.3); White Blood Count 7.6 T/CUMM (4-12)
[2018-07-15 03:49] LABS: Calcium 8.8 MG/DL (8.5-10.1); Osmolality,Calculated 282.3 MOS/KG (273-304); Potassium 3.2 MMOL/L (3.5-5.1)
[2018-07-15] MEDS: ALBUTEROL 1.25 MG/3 ML NEB RESP TX SCH ×2 (08:29→18:56)
[2018-07-15] MEDS: PANTOPRAZOLE 40 MG TABLET PO SCH (09:39)
[2018-07-15] MEDS: FLUTICASONE/SALMETEROL 250-50 DISKUS 14 DOSE INH SCH ×2 (09:39→22:20)
[2018-07-15] MEDS: GABAPENTIN 300 MG CAPSULE PO SCH ×3 (09:40→22:19)
[2018-07-15] MEDS: DOCUSATE SODIUM 100 MG CAPSULE PO SCH ×2 (09:40→22:19)
[2018-07-15] MEDS: ATENOLOL 25 MG TABLET PO SCH (09:40)
[2018-07-15] MEDS: TAMSULOSIN 0.4 MG CAPSULE PO SCH ×2 (09:40→22:20)
[2018-07-15] MEDS: DUTASTERIDE 0.5 MG CAPSULE PO SCH (09:40)
[2018-07-15] MEDS: ASPIRIN EC 81 MG TABLET PO SCH (09:41)
[2018-07-15] MEDS: POTASSIUM CHLORIDE 10 MEQ TABLET PO SCH (09:41)
[2018-07-15] MEDS: POTASSIUM CHLORIDE 20 MEQ TABLET PO PRN ×4 (09:41→18:00)
[2018-07-15] MEDS: hydrALAZINE 25 MG TABLET PO SCH ×2 (09:41→22:19)
[2018-07-15] MEDS: EZETIMIBE 10 MG TABLET PO SCH (22:19)
[2018-07-15] MEDS: SIMVASTATIN 20 MG TABLET PO SCH (22:20)
[2018-07-15] MEDS: SERTRALINE 50 MG TABLET PO SCH (22:20)
[2018-07-16 04:04] LABS: Osmolality,Calculated 280.3 MOS/KG (273-304); Potassium 3.8 MMOL/L (3.5-5.1)
[2018-07-16] MEDS: FLUTICASONE/SALMETEROL 250-50 DISKUS 14 DOSE INH SCH (09:25)
[2018-07-16] MEDS: ASPIRIN EC 81 MG TABLET PO SCH (09:25)
[2018-07-16] MEDS: TAMSULOSIN 0.4 MG CAPSULE PO SCH (09:26)
[2018-07-16] MEDS: ATENOLOL 25 MG TABLET PO SCH (09:26)
[2018-07-16] MEDS: GABAPENTIN 300 MG CAPSULE PO SCH ×2 (09:26→14:59)
[2018-07-16] MEDS: POTASSIUM CHLORIDE 10 MEQ TABLET PO SCH (09:26)
[2018-07-16] MEDS: DUTASTERIDE 0.5 MG CAPSULE PO SCH (09:26)
[2018-07-16] MEDS: hydrALAZINE 25 MG TABLET PO SCH (09:26)
[2018-07-16] MEDS: PANTOPRAZOLE 40 MG TABLET PO SCH (09:26)
[2018-07-16] MEDS: DOCUSATE SODIUM 100 MG CAPSULE PO SCH (09:26)
[2018-07-16] MEDS: ALBUTEROL 1.25 MG/3 ML NEB RESP TX SCH (09:30)
[2018-07-16] MEDS: POTASSIUM CHLORIDE 20 MEQ TABLET PO PRN (10:14)
[2018-07-16] MEDS ORDERED: INFLUENZA VIRUS VACCINE 0.5 ML SYRINGE IM ONE (14:06)
[2018-07-16 16:23] VITALS: BP 119/77
== END 2018-07-16 19:15 | disposition home health service (06) ==
LOC: N.2W 12:33 → N.TELES 13:57
PROVIDERS: ADMIT Internal Medicine; ATTEND Internal Medicine

== ENCOUNTER 2018-07-30 06:04 | Inpatient (IN) ==
[2018-07-23 13:12] LABS: Basophils # 0.1 10*3/uL (0.0-0.2); Basophils % 0.7 % (0.0-0.8); Eosinophils # 0.2 10*3/uL (0.0-0.87); Eosinophils % 2.7 % (0.00-10.9); Hematocrit 33.9 VOL% (42.0-52.0); Hemoglobin 11.1 GM/DL (14.0-18.0); Immature Granulocytes % 0.7 %; Immature Granulocytes Absolute 0.06 #; Lymphocytes # 1.3 10*3/uL (1.4-4.0); Lymphocytes % 15.2 % (21.2-54.2); Mean Corpuscular HGB Conc 32.7 GM/DL (32-36); Mean Corpuscular Hemoglobin 31 PG (27-34); Mean Corpuscular Volume 93.4 FL (87-102); Mean Platelet Volume 10.6 FL (9.6-12.0); Monocytes # 0.3 10*3/uL (0.11-0.8); Monocytes % 3.9 % (1.7-12.7); Neutrophils # 6.4 10*3/uL (1.4-7.4); Neutrophils % 76.8 % (38.7-73.9); Platelet Count 270 T/CUMM (130-400); Red Blood Count 3.63 MC/CUMM (3.8-5.5); Red Cell Distribution Width 13.1 % (9.3-17.3); White Blood Count 8.4 T/CUMM (4-12)
[2018-07-23 13:27] LABS: Calcium 9.1 MG/DL (8.5-10.1); Osmolality,Calculated 284.4 MOS/KG (273-304); Potassium 4.2 MMOL/L (3.5-5.1)
[2018-07-30] MEDS: LACTATED RINGERS 1,000 ML IV SCH (06:37)
[2018-07-30] MEDS ORDERED: cefTRIAXone 1,000 MG VIAL ONE (06:41)
[2018-07-30] MEDS ORDERED: cefTRIAXone 1,000 MG in SYRINGE 1 EACH IV ONE (07:00)
[2018-07-30] MEDS ORDERED: NEOMYCIN/POLYMYXIN IRRIG SOLN 1 ML AMP BLADDERIRR ONE (07:17)
[2018-07-30 09:20] LABS: Basophils # 0.1 10*3/uL (0.0-0.2); Eosinophils # 0.2 10*3/uL (0.0-0.87); Eosinophils % 3.7 % (0.00-10.9); Hematocrit 28.3 VOL% (42.0-52.0); Hemoglobin 9.3 GM/DL (14.0-18.0); Immature Granulocytes % 0.5 %; Immature Granulocytes Absolute 0.03 #; Lymphocytes # 1.5 10*3/uL (1.4-4.0); Lymphocytes % 24.6 % (21.2-54.2); Mean Corpuscular HGB Conc 32.9 GM/DL (32-36); Mean Corpuscular Hemoglobin 31 PG (27-34); Mean Platelet Volume 10.2 FL (9.6-12.0); Monocytes # 0.4 10*3/uL (0.11-0.8); Monocytes % 6.5 % (1.7-12.7); Neutrophils % 63.7 % (38.7-73.9); Platelet Count 245 T/CUMM (130-400); Red Blood Count 3.01 MC/CUMM (3.8-5.5); Red Cell Distribution Width 13.2 % (9.3-17.3); White Blood Count 6.3 T/CUMM (4-12)
[2018-07-30] MEDS ORDERED: PROMETHAZINE 25 MG/1 ML VIAL IM PRN (09:28)
[2018-07-30] MEDS ORDERED: ONDANSETRON 4 MG/2 ML VIAL IV PRN (09:28)
[2018-07-30] MEDS ORDERED: DOCUSATE SODIUM 100 MG CAPSULE PO PRN (09:32)
[2018-07-30] MEDS ORDERED: SODIUM CHLORIDE 0.9% 1,000 ML IV PRN (09:33)
[2018-07-30 09:46] LABS: Osmolality,Calculated 289.8 MOS/KG (273-304); Potassium 4.4 MMOL/L (3.5-5.1)
[2018-07-30] MEDS ORDERED: PHENYLEPHRINE DRIP 20 MG/250 ML PREMIX IV ONE ×2 (09:47→09:59)
[2018-07-30] MEDS ORDERED: PROPOFOL 200 MG/20 ML VIAL IV ONE (09:58)
[2018-07-30] MEDS ORDERED: fentaNYL 100 MCG/2 ML VIAL ONE (09:59)
[2018-07-30] MEDS ORDERED: SEVOFLURANE 1 UNIT/15 MINUTE INH ONE (09:59)
[2018-07-30] MEDS ORDERED: MIDAZOLAM 2 MG/2 ML VIAL ONE (09:59)
[2018-07-30] MEDS ORDERED: GLYCOPYRROLATE 0.4 MG/2 ML VIAL ONE (09:59)
[2018-07-30] MEDS ORDERED: SUCCINYLCHOLINE 200 MG/10 ML VIAL ONE (10:00)
[2018-07-30] MEDS ORDERED: PHENYLEPHRINE 1 MG/10 ML SYRINGE IV ONE (10:00)
[2018-07-30] MEDS ORDERED: ROCURONIUM 100 MG/10 ML VIAL IV ONE (10:00)
[2018-07-30] MEDS ORDERED: NEOSTIGMINE 10 MG/10 ML VIAL ONE (10:00)
[2018-07-30] MEDS ORDERED: ACETAMINOPHEN 1,000 MG/100 ML VIAL IV ONE (10:00)
[2018-07-30] MEDS: SODIUM CHLORIDE 0.9% 1,000 ML IV SCH ×2 (10:25→19:01)
[2018-07-30] MEDS ORDERED: cefTRIAXone 1,000 MG in SYRINGE 1 EACH IV SCH (10:30)
[2018-07-30] MEDS: PHENYLEPHRINE DRIP 40 MG/250 ML PREMIX IV PRN ×3 (11:17→12:40)
[2018-07-30] MEDS: HYDROmorphone 2 MG/1 ML VIAL IV PRN (13:16)
[2018-07-30] MEDS: ACETAMINOPHEN 325 MG TABLET PO SCH ×3 (13:17→21:03)
[2018-07-30] MEDS: GABAPENTIN 300 MG CAPSULE PO SCH ×2 (16:07→21:03)
[2018-07-30] MEDS: FLUTICASONE/SALMETEROL 250-50 DISKUS 14 DOSE INH SCH (21:02)
[2018-07-30] MEDS: BELLADONNA/OPIUM 30 MG SUPP RECTAL SCH (21:03)
[2018-07-30] MEDS: SERTRALINE 50 MG TABLET PO SCH (21:03)
[2018-07-31] MEDS: ACETAMINOPHEN 325 MG TABLET PO SCH ×4 (03:41→20:50)
[2018-07-31 03:56] LABS: Basophils % 0.5 % (0.0-0.8); Eosinophils # 0.2 10*3/uL (0.0-0.87); Eosinophils % 2.9 % (0.00-10.9); Hematocrit 28.3 VOL% (42.0-52.0); Hemoglobin 9.1 GM/DL (14.0-18.0); Immature Granulocytes % 0.6 %; Immature Granulocytes Absolute 0.05 #; Lymphocytes # 1.5 10*3/uL (1.4-4.0); Lymphocytes % 17.9 % (21.2-54.2); Mean Corpuscular HGB Conc 32.2 GM/DL (32-36); Mean Corpuscular Hemoglobin 30 PG (27-34); Mean Corpuscular Volume 92.5 FL (87-102); Mean Platelet Volume 10.4 FL (9.6-12.0); Monocytes # 0.6 10*3/uL (0.11-0.8); Monocytes % 7.1 % (1.7-12.7); Neutrophils # 5.9 10*3/uL (1.4-7.4); Platelet Count 176 T/CUMM (130-400); Red Blood Count 3.06 MC/CUMM (3.8-5.5); Red Cell Distribution Width 14.4 % (9.3-17.3); White Blood Count 8.4 T/CUMM (4-12)
[2018-07-31 04:21] LABS: Osmolality,Calculated 279.4 MOS/KG (273-304); Potassium 4.1 MMOL/L (3.5-5.1)
[2018-07-31] MEDS: SODIUM CHLORIDE 0.9% 1,000 ML IV SCH ×3 (05:02→20:51)
[2018-07-31] MEDS ORDERED: SODIUM CHLORIDE 0.9% 1,000 ML IV PRN (07:28)
[2018-07-31] MEDS: POTASSIUM CHLORIDE 10 MEQ TABLET PO SCH (08:30)
[2018-07-31] MEDS: DUTASTERIDE 0.5 MG CAPSULE PO SCH (08:31)
[2018-07-31] MEDS: GABAPENTIN 300 MG CAPSULE PO SCH ×3 (08:31→20:50)
[2018-07-31] MEDS: cefTRIAXone 1,000 MG in SYRINGE 1 EACH IV SCH (08:31)
[2018-07-31] MEDS: BELLADONNA/OPIUM 30 MG SUPP RECTAL SCH ×2 (08:32→20:48)
[2018-07-31] MEDS: LACTATED RINGERS 1,000 ML IV SCH (08:34)
[2018-07-31] MEDS: FLUTICASONE/SALMETEROL 250-50 DISKUS 14 DOSE INH SCH ×2 (08:44→20:50)
[2018-07-31] MEDS: ATENOLOL 25 MG TABLET PO SCH (08:45)
[2018-07-31] MEDS: SERTRALINE 50 MG TABLET PO SCH (20:50)
[2018-07-31 22:23] LABS: Hematocrit 32.4 VOL% (42.0-52.0); Hemoglobin 10.9 GM/DL (14.0-18.0)
[2018-08-01] MEDS: ACETAMINOPHEN 325 MG TABLET PO SCH ×4 (04:11→21:10)
[2018-08-01] MEDS: SODIUM CHLORIDE 0.9% 1,000 ML IV SCH ×3 (05:33→23:26)
[2018-08-01] MEDS: LACTATED RINGERS 1,000 ML IV SCH (05:35)
[2018-08-01 05:58] LABS: Basophils % 0.6 % (0.0-0.8); Eosinophils # 0.2 10*3/uL (0.0-0.87); Eosinophils % 3.2 % (0.00-10.9); Hematocrit 33.4 VOL% (42.0-52.0); Hemoglobin 10.8 GM/DL (14.0-18.0); Immature Granulocytes % 0.3 %; Immature Granulocytes Absolute 0.02 #; Lymphocytes # 1.1 10*3/uL (1.4-4.0); Lymphocytes % 16.1 % (21.2-54.2); Mean Corpuscular HGB Conc 32.3 GM/DL (32-36); Mean Corpuscular Hemoglobin 29 PG (27-34); Monocytes # 0.5 10*3/uL (0.11-0.8); Monocytes % 6.8 % (1.7-12.7); Neutrophils # 4.9 10*3/uL (1.4-7.4); Platelet Count 160 T/CUMM (130-400); Red Blood Count 3.67 MC/CUMM (3.8-5.5); Red Cell Distribution Width 14.7 % (9.3-17.3); White Blood Count 6.7 T/CUMM (4-12)
[2018-08-01 06:12] LABS: Osmolality,Calculated 286.8 MOS/KG (273-304); Potassium 3.9 MMOL/L (3.5-5.1)
[2018-08-01] MEDS: cefTRIAXone 1,000 MG in SYRINGE 1 EACH IV SCH (09:29)
[2018-08-01] MEDS: DUTASTERIDE 0.5 MG CAPSULE PO SCH (09:30)
[2018-08-01] MEDS: POTASSIUM CHLORIDE 10 MEQ TABLET PO SCH (09:30)
[2018-08-01] MEDS: FLUTICASONE/SALMETEROL 250-50 DISKUS 14 DOSE INH SCH ×2 (09:30→21:11)
[2018-08-01] MEDS: GABAPENTIN 300 MG CAPSULE PO SCH ×4 (09:30→21:09)
[2018-08-01] MEDS: ATENOLOL 25 MG TABLET PO SCH (09:30)
[2018-08-01] MEDS: BELLADONNA/OPIUM 30 MG SUPP RECTAL SCH ×2 (09:30→22:46)
[2018-08-01] MEDS: ACETYLCYSTEINE 600 MG CAPSULE PO SCH ×2 (12:50→21:10)
[2018-08-01] MEDS ORDERED: MAGNESIUM HYDROXIDE SUSP 30 ML UDCUP PO PRN (15:37)
[2018-08-01] MEDS: SERTRALINE 50 MG TABLET PO SCH (21:10)
[2018-08-02] MEDS: ACETAMINOPHEN 325 MG TABLET PO SCH ×4 (04:50→21:07)
[2018-08-02] MEDS: ATENOLOL 25 MG TABLET PO SCH (08:34)
[2018-08-02] MEDS: ACETYLCYSTEINE 600 MG CAPSULE PO SCH ×2 (08:34→21:07)
[2018-08-02] MEDS: DUTASTERIDE 0.5 MG CAPSULE PO SCH (08:34)
[2018-08-02] MEDS: POTASSIUM CHLORIDE 10 MEQ TABLET PO SCH (08:34)
[2018-08-02] MEDS: GABAPENTIN 300 MG CAPSULE PO SCH ×3 (08:34→21:07)
[2018-08-02] MEDS: cefTRIAXone 1,000 MG in SYRINGE 1 EACH IV SCH (08:35)
[2018-08-02] MEDS: LACTATED RINGERS 1,000 ML IV SCH (08:36)
[2018-08-02] MEDS: BELLADONNA/OPIUM 30 MG SUPP RECTAL SCH ×2 (08:36→21:08)
[2018-08-02] MEDS: FLUTICASONE/SALMETEROL 250-50 DISKUS 14 DOSE INH SCH ×2 (08:36→21:08)
[2018-08-02 10:38] LABS: Calcium 7.9 MG/DL (8.5-10.1); Osmolality,Calculated 282.1 MOS/KG (273-304); Potassium 3.9 MMOL/L (3.5-5.1)
[2018-08-02] MEDS: hydrALAZINE 25 MG TABLET PO SCH ×2 (12:31→21:07)
[2018-08-02] MEDS: SODIUM CHLORIDE 0.9% 1,000 ML IV SCH (18:40)
[2018-08-02] MEDS: SERTRALINE 50 MG TABLET PO SCH (21:07)
[2018-08-03] MEDS: ACETAMINOPHEN 325 MG TABLET PO SCH ×4 (04:19→21:17)
[2018-08-03 06:23] LABS: Basophils % 0.6 % (0.0-0.8); Eosinophils # 0.3 10*3/uL (0.0-0.87); Eosinophils % 4.6 % (0.00-10.9); Hemoglobin 10.1 GM/DL (14.0-18.0); Immature Granulocytes % 0.6 %; Immature Granulocytes Absolute 0.03 #; Lymphocytes # 0.8 10*3/uL (1.4-4.0); Lymphocytes % 14.3 % (21.2-54.2); Mean Corpuscular HGB Conc 32.6 GM/DL (32-36); Mean Corpuscular Hemoglobin 30 PG (27-34); Mean Corpuscular Volume 90.6 FL (87-102); Mean Platelet Volume 10.6 FL (9.6-12.0); Monocytes # 0.3 10*3/uL (0.11-0.8); Monocytes % 6.3 % (1.7-12.7); Neutrophils % 73.6 % (38.7-73.9); Platelet Count 140 T/CUMM (130-400); Red Blood Count 3.42 MC/CUMM (3.8-5.5); Red Cell Distribution Width 13.9 % (9.3-17.3); White Blood Count 5.4 T/CUMM (4-12)
[2018-08-03 06:41] LABS: Calcium 8.6 MG/DL (8.5-10.1); Potassium 3.3 MMOL/L (3.5-5.1)
[2018-08-03] MEDS: cefTRIAXone 1,000 MG in SYRINGE 1 EACH IV SCH (09:13)
[2018-08-03] MEDS: GABAPENTIN 300 MG CAPSULE PO SCH ×3 (09:13→21:17)
[2018-08-03] MEDS: POTASSIUM CHLORIDE 10 MEQ TABLET PO SCH (09:13)
[2018-08-03] MEDS: DUTASTERIDE 0.5 MG CAPSULE PO SCH (09:13)
[2018-08-03] MEDS: hydrALAZINE 25 MG TABLET PO SCH ×2 (09:13→21:17)
[2018-08-03] MEDS: ACETYLCYSTEINE 600 MG CAPSULE PO SCH (09:13)
[2018-08-03] MEDS: ATENOLOL 25 MG TABLET PO SCH (09:13)
[2018-08-03] MEDS: BELLADONNA/OPIUM 30 MG SUPP RECTAL SCH ×2 (09:14→21:58)
[2018-08-03] MEDS: FLUTICASONE/SALMETEROL 250-50 DISKUS 14 DOSE INH SCH ×2 (09:14→21:20)
[2018-08-03] MEDS: SODIUM CHLORIDE 0.9% 1,000 ML IV SCH ×3 (11:04→16:29)
[2018-08-03] MEDS: POTASSIUM CHLORIDE 20 MEQ TABLET PO PRN ×2 (13:55→16:28)
[2018-08-03] MEDS: SERTRALINE 50 MG TABLET PO SCH (21:17)
[2018-08-04] MEDS: ACETAMINOPHEN 325 MG TABLET PO SCH ×2 (03:44→09:30)
[2018-08-04] MEDS: HYDROmorphone 2 MG/1 ML VIAL IV PRN (03:50)
[2018-08-04 05:27] LABS: Basophils % 0.6 % (0.0-0.8); Eosinophils # 0.2 10*3/uL (0.0-0.87); Eosinophils % 4.8 % (0.00-10.9); Hematocrit 31.5 VOL% (42.0-52.0); Hemoglobin 10.4 GM/DL (14.0-18.0); Immature Granulocytes % 0.4 %; Immature Granulocytes Absolute 0.02 #; Lymphocytes # 0.8 10*3/uL (1.4-4.0); Lymphocytes % 15.7 % (21.2-54.2); Mean Corpuscular Hemoglobin 30 PG (27-34); Mean Platelet Volume 10.4 FL (9.6-12.0); Monocytes # 0.4 10*3/uL (0.11-0.8); Neutrophils # 3.5 10*3/uL (1.4-7.4); Neutrophils % 70.5 % (38.7-73.9); Platelet Count 145 T/CUMM (130-400); Red Cell Distribution Width 13.8 % (9.3-17.3)
[2018-08-04 05:57] LABS: Calcium 8.6 MG/DL (8.5-10.1); Osmolality,Calculated 279.1 MOS/KG (273-304); Potassium 3.6 MMOL/L (3.5-5.1)
[2018-08-04] MEDS: BELLADONNA/OPIUM 30 MG SUPP RECTAL SCH (09:00)
[2018-08-04] MEDS: ATENOLOL 25 MG TABLET PO SCH (09:39)
[2018-08-04] MEDS: GABAPENTIN 300 MG CAPSULE PO SCH ×2 (09:39→14:21)
[2018-08-04] MEDS: DUTASTERIDE 0.5 MG CAPSULE PO SCH (09:39)
[2018-08-04] MEDS: FLUTICASONE/SALMETEROL 250-50 DISKUS 14 DOSE INH SCH (09:40)
[2018-08-04] MEDS: POTASSIUM CHLORIDE 10 MEQ TABLET PO SCH (09:40)
[2018-08-04] MEDS: cefTRIAXone 1,000 MG in SYRINGE 1 EACH IV SCH (09:40)
[2018-08-04] MEDS: hydrALAZINE 25 MG TABLET PO SCH (09:40)
[2018-08-04 15:59] VITALS: BP 162/91
== END 2018-08-04 17:25 | disposition home or self-care (01) | DRG 657 ==
LOC: N.OR 06:04 → N.SDSINP 06:05 → N.ICU 09:28 → N.OR 09:57 → N.ICU 11:16 → N.5E 07-31 19:11
PROVIDERS: ADMIT Surgery; ATTEND Surgery

== ENCOUNTER 2018-08-10 20:28 | Inpatient (IN) ==
[~2018-08-10 20:28] MED LIST: ONDANSETRON 4 MG/2 ML VIAL IV ONE
[2018-08-10] MEDS: ONDANSETRON 4 MG/2 ML VIAL IV STA (22:45)
[2018-08-10] MEDS: LEVOFLOXACIN INJ 750 MG in PREMIX 1 EACH IV STA (22:45)
[2018-08-10] MEDS: HYDROmorphone 2 MG/1 ML VIAL IV STA (22:45)
[2018-08-10] MEDS ORDERED: HYDROmorphone 2 MG/1 ML VIAL IV ONE ×2 (23:00→23:30)
[2018-08-10] MEDS ORDERED: SODIUM CHLORIDE 0.9% 1,000 ML IV STA (23:00)
[2018-08-10] MEDS: CIPROFLOXACIN 500 MG TABLET PO STA (23:05)
[2018-08-10 23:07] LABS: Basophils % 0.4 % (0.0-0.8); Eosinophils # 0.1 10*3/uL (0.0-0.87); Eosinophils % 1.1 % (0.00-10.9); Hemoglobin 10.6 GM/DL (14.0-18.0); Immature Granulocytes % 0.6 %; Immature Granulocytes Absolute 0.06 #; Lymphocytes # 1.7 10*3/uL (1.4-4.0); Lymphocytes % 15.5 % (21.2-54.2); Mean Corpuscular HGB Conc 34.2 GM/DL (32-36); Mean Corpuscular Hemoglobin 30 PG (27-34); Mean Corpuscular Volume 86.8 FL (87-102); Mean Platelet Volume 10.3 FL (9.6-12.0); Monocytes # 0.6 10*3/uL (0.11-0.8); Neutrophils # 8.1 10*3/uL (1.4-7.4); Neutrophils % 76.4 % (38.7-73.9); Platelet Count 247 T/CUMM (130-400); Red Blood Count 3.57 MC/CUMM (3.8-5.5); Red Cell Distribution Width 13.2 % (9.3-17.3); White Blood Count 10.6 T/CUMM (4-12)
[2018-08-10 23:27] LABS: Albumin 3.3 G/DL (3.4-5.0); Bilirubin,Total 0.7 MG/DL (0.2-1.0); Osmolality,Calculated 280.7 MOS/KG (273-304); Potassium 3.3 MMOL/L (3.5-5.1)
[2018-08-11] MEDS ORDERED: LEVOFLOXACIN INJ 750 MG in PREMIX 1 EACH IV SCH (00:30)
[2018-08-11] MEDS: ONDANSETRON 4 MG/2 ML VIAL IV PRN ×3 (04:06→22:34)
[2018-08-11 04:49] LABS: Basophils % 0.1 % (0.0-0.8); Hematocrit 29.4 VOL% (42.0-52.0); Hemoglobin 9.5 GM/DL (14.0-18.0); Immature Granulocytes % 0.7 %; Immature Granulocytes Absolute 0.08 #; Lymphocytes # 0.4 10*3/uL (1.4-4.0); Lymphocytes % 3.8 % (21.2-54.2); Mean Corpuscular HGB Conc 32.3 GM/DL (32-36); Mean Corpuscular Hemoglobin 29 PG (27-34); Mean Corpuscular Volume 90.5 FL (87-102); Mean Platelet Volume 10.8 FL (9.6-12.0); Monocytes # 0.6 10*3/uL (0.11-0.8); Monocytes % 5.6 % (1.7-12.7); Neutrophils # 9.9 10*3/uL (1.4-7.4); Neutrophils % 89.8 % (38.7-73.9); Platelet Count 171 T/CUMM (130-400); Red Blood Count 3.25 MC/CUMM (3.8-5.5); Red Cell Distribution Width 13.4 % (9.3-17.3)
[2018-08-11 05:03] LABS: Calcium 8.5 MG/DL (8.5-10.1); Osmolality,Calculated 276.1 MOS/KG (273-304); Potassium 4.5 MMOL/L (3.5-5.1)
[2018-08-11 05:26] LABS: Band Neutrophils 2 % (0-10); Hypochromasia 1+; Lymphocytes 1 % (20-55); Microcytosis Slight; Segmented Neutrophils 95 % (50-85); Total Cells Counted 100
[2018-08-11] MEDS: HYDROmorphone 2 MG/1 ML VIAL IV PRN ×2 (07:35→20:34)
[2018-08-11] MEDS ORDERED: cefTRIAXone 1,000 MG in SYRINGE 1 EACH IV ONE (07:48)
[2018-08-11] MEDS: HYDROmorphone 2 MG/1 ML VIAL IV STA (08:13)
[2018-08-11] MEDS: LEVOFLOXACIN INJ 750 MG in PREMIX 1 EACH IV STA (08:46)
[2018-08-11] MEDS: DOCUSATE SODIUM 100 MG CAPSULE PO SCH ×2 (08:47→20:33)
[2018-08-11] MEDS: POTASSIUM CHLORIDE 10 MEQ TABLET PO SCH (08:47)
[2018-08-11] MEDS: ONDANSETRON 4 MG/2 ML VIAL IV STA (08:47)
[2018-08-11] MEDS: TAMSULOSIN 0.4 MG CAPSULE PO SCH ×2 (08:47→20:33)
[2018-08-11] MEDS: FLUTICASONE/SALMETEROL 250-50 DISKUS 14 DOSE INH SCH ×2 (08:47→20:41)
[2018-08-11] MEDS: DUTASTERIDE 0.5 MG CAPSULE PO SCH (08:47)
[2018-08-11] MEDS: GABAPENTIN 300 MG CAPSULE PO SCH ×3 (08:48→20:33)
[2018-08-11] MEDS: ATENOLOL 50 MG TABLET PO SCH (08:48)
[2018-08-11] MEDS: CIPROFLOXACIN 500 MG TABLET PO STA (08:49)
[2018-08-11] MEDS ORDERED: cefTRIAXone 1,000 MG VIAL ONE (08:51)
[2018-08-11] MEDS ORDERED: hydrALAZINE 25 MG TABLET PO SCH (09:00)
[2018-08-11] MEDS ORDERED: BELLADONNA/OPIUM 30 MG SUPP RECTAL ONE (10:12)
[2018-08-11] MEDS ORDERED: SODIUM CHLORIDE 0.9% 1,000 ML IV PRN ×2 (10:14→10:16)
[2018-08-11] MEDS ORDERED: ePHEDrine 50 MG/ML AMP ONE (10:27)
[2018-08-11] MEDS ORDERED: PROPOFOL 200 MG/20 ML VIAL IV ONE (10:29)
[2018-08-11] MEDS ORDERED: MIDAZOLAM 2 MG/2 ML VIAL ONE (10:29)
[2018-08-11] MEDS ORDERED: ONDANSETRON 4 MG/2 ML VIAL ONE (10:29)
[2018-08-11] MEDS ORDERED: fentaNYL 100 MCG/2 ML VIAL ONE (10:29)
[2018-08-11] MEDS ORDERED: PHENYLEPHRINE 1 MG/10 ML SYRINGE IV ONE (10:30)
[2018-08-11] MEDS ORDERED: ACETAMINOPHEN 1,000 MG/100 ML VIAL IV ONE (10:30)
[2018-08-11] MEDS ORDERED: SEVOFLURANE 1 UNIT/15 MINUTE INH ONE (10:30)
[2018-08-11] MEDS ORDERED: SODIUM CHLORIDE 0.9% 100 ML IV ONE (10:31)
[2018-08-11] MEDS ORDERED: LACTATED RINGERS 1,000 ML IV SCH (11:00)
[2018-08-11 17:47] LABS: Hematocrit 30.8 VOL% (42.0-52.0); Hemoglobin 10.1 GM/DL (14.0-18.0)
[2018-08-11] MEDS: SERTRALINE 50 MG TABLET PO SCH (20:33)
[2018-08-12] MEDS: HYDROmorphone 2 MG/1 ML VIAL IV PRN (01:20)
[2018-08-12 05:24] LABS: Basophils % 0.2 % (0.0-0.8); Eosinophils # 0.1 10*3/uL (0.0-0.87); Eosinophils % 0.6 % (0.00-10.9); Hematocrit 28.7 VOL% (42.0-52.0); Hemoglobin 9.6 GM/DL (14.0-18.0); Immature Granulocytes % 0.3 %; Immature Granulocytes Absolute 0.04 #; Lymphocytes # 0.8 10*3/uL (1.4-4.0); Lymphocytes % 6.9 % (21.2-54.2); Mean Corpuscular HGB Conc 33.4 GM/DL (32-36); Mean Corpuscular Hemoglobin 30 PG (27-34); Mean Corpuscular Volume 89.7 FL (87-102); Mean Platelet Volume 10.6 FL (9.6-12.0); Monocytes # 0.7 10*3/uL (0.11-0.8); Monocytes % 6.2 % (1.7-12.7); Neutrophils # 9.8 10*3/uL (1.4-7.4); Neutrophils % 85.8 % (38.7-73.9); Platelet Count 150 T/CUMM (130-400); Red Cell Distribution Width 14.3 % (9.3-17.3); White Blood Count 11.5 T/CUMM (4-12)
[2018-08-12 05:49] LABS: Calcium 8.4 MG/DL (8.5-10.1); Osmolality,Calculated 274.2 MOS/KG (273-304); Potassium 4.4 MMOL/L (3.5-5.1)
[2018-08-12] MEDS: SODIUM CHLORIDE 0.9% 1,000 ML IV SCH (08:00)
[2018-08-12] MEDS ORDERED: cefTRIAXone 1,000 MG in SYRINGE 1 EACH IV ONE (08:00)
[2018-08-12] MEDS: POTASSIUM CHLORIDE 10 MEQ TABLET PO SCH (08:32)
[2018-08-12] MEDS: ATENOLOL 50 MG TABLET PO SCH (08:32)
[2018-08-12] MEDS: DOCUSATE SODIUM 100 MG CAPSULE PO SCH ×2 (08:32→20:54)
[2018-08-12] MEDS: DUTASTERIDE 0.5 MG CAPSULE PO SCH (08:32)
[2018-08-12] MEDS: TAMSULOSIN 0.4 MG CAPSULE PO SCH ×2 (08:32→20:53)
[2018-08-12] MEDS: GABAPENTIN 300 MG CAPSULE PO SCH ×2 (08:32→20:53)
[2018-08-12] MEDS: FLUTICASONE/SALMETEROL 250-50 DISKUS 14 DOSE INH SCH ×2 (08:32→20:54)
[2018-08-12] MEDS ORDERED: cefTRIAXone 1,000 MG in SODIUM CHLORIDE 0.9% 100 ML IV SCH (09:00)
[2018-08-12] MEDS ORDERED: fentaNYL 100 MCG/2 ML VIAL IV ONE (09:28)
[2018-08-12] MEDS ORDERED: MIDAZOLAM 2 MG/2 ML VIAL IV ONE (09:28)
[2018-08-12] MEDS ORDERED: DIAZEPAM 5 MG TABLET PO ONE (09:28)
[2018-08-12] MEDS ORDERED: fentaNYL 100 MCG/2 ML VIAL ONE (09:47)
[2018-08-12] MEDS ORDERED: MIDAZOLAM 2 MG/2 ML VIAL ONE (09:47)
[2018-08-12] MEDS: SERTRALINE 50 MG TABLET PO SCH (20:54)
[2018-08-12] MEDS: LEVOFLOXACIN INJ 750 MG in PREMIX 1 EACH IV SCH (22:38)
[2018-08-13] MEDS: SODIUM CHLORIDE 0.9% 1,000 ML IV SCH ×2 (02:20→10:03)
[2018-08-13 05:51] LABS: Basophils % 0.1 % (0.0-0.8); Eosinophils # 0.2 10*3/uL (0.0-0.87); Hematocrit 25.7 VOL% (42.0-52.0); Hemoglobin 8.6 GM/DL (14.0-18.0); Immature Granulocytes % 0.6 %; Immature Granulocytes Absolute 0.06 #; Lymphocytes # 0.6 10*3/uL (1.4-4.0); Lymphocytes % 6.2 % (21.2-54.2); Mean Corpuscular HGB Conc 33.5 GM/DL (32-36); Mean Corpuscular Hemoglobin 30 PG (27-34); Mean Corpuscular Volume 90.8 FL (87-102); Mean Platelet Volume 11.1 FL (9.6-12.0); Monocytes # 0.8 10*3/uL (0.11-0.8); Neutrophils # 8.1 10*3/uL (1.4-7.4); Neutrophils % 83.1 % (38.7-73.9); Platelet Count 153 T/CUMM (130-400); Red Blood Count 2.83 MC/CUMM (3.8-5.5); Red Cell Distribution Width 14.2 % (9.3-17.3); White Blood Count 9.8 T/CUMM (4-12)
[2018-08-13 06:11] LABS: Calcium 8.2 MG/DL (8.5-10.1); Potassium 3.9 MMOL/L (3.5-5.1)
[2018-08-13] MEDS: FLUTICASONE/SALMETEROL 250-50 DISKUS 14 DOSE INH SCH ×2 (10:00→20:50)
[2018-08-13] MEDS: POTASSIUM CHLORIDE 10 MEQ TABLET PO SCH (10:01)
[2018-08-13] MEDS: DUTASTERIDE 0.5 MG CAPSULE PO SCH (10:01)
[2018-08-13] MEDS: ATENOLOL 50 MG TABLET PO SCH (10:01)
[2018-08-13] MEDS: DOCUSATE SODIUM 100 MG CAPSULE PO SCH ×2 (10:01→20:50)
[2018-08-13] MEDS: TAMSULOSIN 0.4 MG CAPSULE PO SCH ×2 (10:01→20:50)
[2018-08-13] MEDS ORDERED: BELLADONNA/OPIUM 30 MG SUPP RECTAL PRN (12:15)
[2018-08-13] MEDS: MORPHINE 4 MG/1 ML VIAL IV PRN (12:33)
[2018-08-13] MEDS: SERTRALINE 50 MG TABLET PO SCH (20:50)
[2018-08-13] MEDS: GABAPENTIN 300 MG CAPSULE PO SCH (20:50)
[2018-08-14 05:00] LABS: Basophils % 0.4 % (0.0-0.8); Eosinophils # 0.3 10*3/uL (0.0-0.87); Hematocrit 25.9 VOL% (42.0-52.0); Hemoglobin 8.1 GM/DL (14.0-18.0); Immature Granulocytes % 0.7 %; Immature Granulocytes Absolute 0.06 #; Lymphocytes # 1.1 10*3/uL (1.4-4.0); Lymphocytes % 13.3 % (21.2-54.2); Mean Corpuscular HGB Conc 31.3 GM/DL (32-36); Mean Corpuscular Hemoglobin 29 PG (27-34); Mean Corpuscular Volume 91.5 FL (87-102); Monocytes # 0.6 10*3/uL (0.11-0.8); Monocytes % 7.7 % (1.7-12.7); Neutrophils # 6.1 10*3/uL (1.4-7.4); Neutrophils % 73.9 % (38.7-73.9); Platelet Count 188 T/CUMM (130-400); Red Blood Count 2.83 MC/CUMM (3.8-5.5); Red Cell Distribution Width 13.8 % (9.3-17.3); White Blood Count 8.3 T/CUMM (4-12)
[2018-08-14 05:15] LABS: Calcium 8.5 MG/DL (8.5-10.1); Osmolality,Calculated 280.4 MOS/KG (273-304); Potassium 3.7 MMOL/L (3.5-5.1)
[2018-08-14 05:16] LABS: Calcium 8.5 MG/DL (8.5-10.1); Osmolality,Calculated 282.3 MOS/KG (273-304); Potassium 3.7 MMOL/L (3.5-5.1)
[2018-08-14] MEDS ORDERED: SODIUM CHLORIDE 0.9% 1,000 ML IV PRN (07:34)
[2018-08-14] MEDS: FLUTICASONE/SALMETEROL 250-50 DISKUS 14 DOSE INH SCH ×2 (08:28→21:36)
[2018-08-14] MEDS: POTASSIUM CHLORIDE 10 MEQ TABLET PO SCH (08:28)
[2018-08-14] MEDS: DOCUSATE SODIUM 100 MG CAPSULE PO SCH ×2 (08:28→21:36)
[2018-08-14] MEDS: ATENOLOL 50 MG TABLET PO SCH (08:28)
[2018-08-14] MEDS: TAMSULOSIN 0.4 MG CAPSULE PO SCH ×2 (08:28→21:36)
[2018-08-14] MEDS: DUTASTERIDE 0.5 MG CAPSULE PO SCH (08:28)
[2018-08-14] MEDS: SODIUM CHLORIDE 0.9% 1,000 ML IV SCH (10:27)
[2018-08-14 18:02] LABS: Hematocrit 29.5 VOL% (42.0-52.0); Hemoglobin 9.8 GM/DL (14.0-18.0)
[2018-08-14] MEDS: GABAPENTIN 300 MG CAPSULE PO SCH (21:36)
[2018-08-14] MEDS: SERTRALINE 50 MG TABLET PO SCH (21:36)
[2018-08-14] MEDS ORDERED: ALUMINUM/MAGNES/SIMETH MAX STR 30 ML UDCUP PO PRN (22:18)
[2018-08-14] MEDS: LEVOFLOXACIN INJ 750 MG in PREMIX 1 EACH IV SCH (22:34)
[2018-08-15 05:06] LABS: Basophils % 0.3 % (0.0-0.8); Eosinophils # 0.3 10*3/uL (0.0-0.87); Eosinophils % 3.9 % (0.00-10.9); Hematocrit 29.7 VOL% (42.0-52.0); Hemoglobin 9.7 GM/DL (14.0-18.0); Immature Granulocytes % 0.6 %; Immature Granulocytes Absolute 0.05 #; Lymphocytes # 0.9 10*3/uL (1.4-4.0); Lymphocytes % 11.8 % (21.2-54.2); Mean Corpuscular HGB Conc 32.7 GM/DL (32-36); Mean Corpuscular Hemoglobin 29 PG (27-34); Mean Corpuscular Volume 89.5 FL (87-102); Mean Platelet Volume 10.7 FL (9.6-12.0); Monocytes # 0.7 10*3/uL (0.11-0.8); Monocytes % 8.5 % (1.7-12.7); Neutrophils # 5.8 10*3/uL (1.4-7.4); Neutrophils % 74.9 % (38.7-73.9); Platelet Count 205 T/CUMM (130-400); Red Blood Count 3.32 MC/CUMM (3.8-5.5); White Blood Count 7.7 T/CUMM (4-12)
[2018-08-15 05:28] LABS: Calcium 8.6 MG/DL (8.5-10.1); Osmolality,Calculated 278.5 MOS/KG (273-304); Potassium 3.6 MMOL/L (3.5-5.1)
[2018-08-15 05:41] LABS: Calcium 8.7 MG/DL (8.5-10.1); Osmolality,Calculated 281.3 MOS/KG (273-304); Potassium 3.9 MMOL/L (3.5-5.1)
[2018-08-15] MEDS: POTASSIUM CHLORIDE 10 MEQ TABLET PO SCH (08:45)
[2018-08-15] MEDS: DUTASTERIDE 0.5 MG CAPSULE PO SCH (08:45)
[2018-08-15] MEDS: DOCUSATE SODIUM 100 MG CAPSULE PO SCH ×2 (08:45→21:26)
[2018-08-15] MEDS: ATENOLOL 50 MG TABLET PO SCH (08:45)
[2018-08-15] MEDS: FLUTICASONE/SALMETEROL 250-50 DISKUS 14 DOSE INH SCH ×2 (08:46→21:26)
[2018-08-15] MEDS: TAMSULOSIN 0.4 MG CAPSULE PO SCH ×2 (08:46→21:26)
[2018-08-15] MEDS: MORPHINE 4 MG/1 ML VIAL IV PRN ×2 (13:59→18:39)
[2018-08-15] MEDS: ONDANSETRON 4 MG/2 ML VIAL IV PRN ×2 (18:09→21:26)
[2018-08-15] MEDS: SERTRALINE 50 MG TABLET PO SCH (21:26)
[2018-08-15] MEDS: GABAPENTIN 300 MG CAPSULE PO SCH (21:26)
[2018-08-16 06:02] LABS: Basophils % 0.6 % (0.0-0.8); Eosinophils # 0.3 10*3/uL (0.0-0.87); Eosinophils % 4.2 % (0.00-10.9); Hematocrit 31.7 VOL% (42.0-52.0); Hemoglobin 10.3 GM/DL (14.0-18.0); Immature Granulocytes % 0.8 %; Immature Granulocytes Absolute 0.05 #; Lymphocytes # 0.9 10*3/uL (1.4-4.0); Lymphocytes % 13.7 % (21.2-54.2); Mean Corpuscular HGB Conc 32.5 GM/DL (32-36); Mean Corpuscular Hemoglobin 29 PG (27-34); Mean Corpuscular Volume 88.8 FL (87-102); Mean Platelet Volume 10.7 FL (9.6-12.0); Monocytes # 0.6 10*3/uL (0.11-0.8); Monocytes % 9.5 % (1.7-12.7); Neutrophils # 4.6 10*3/uL (1.4-7.4); Neutrophils % 71.2 % (38.7-73.9); Platelet Count 225 T/CUMM (130-400); Red Blood Count 3.57 MC/CUMM (3.8-5.5); Red Cell Distribution Width 13.6 % (9.3-17.3); White Blood Count 6.4 T/CUMM (4-12)
[2018-08-16 06:43] LABS: Calcium 8.8 MG/DL (8.5-10.1); Osmolality,Calculated 277.5 MOS/KG (273-304); Potassium 3.4 MMOL/L (3.5-5.1)
[2018-08-16] MEDS: DUTASTERIDE 0.5 MG CAPSULE PO SCH (08:46)
[2018-08-16] MEDS: POTASSIUM CHLORIDE 10 MEQ TABLET PO SCH (08:46)
[2018-08-16] MEDS: DOCUSATE SODIUM 100 MG CAPSULE PO SCH (08:46)
[2018-08-16] MEDS: TAMSULOSIN 0.4 MG CAPSULE PO SCH (08:46)
[2018-08-16] MEDS: ATENOLOL 50 MG TABLET PO SCH (08:46)
[2018-08-16] MEDS: FLUTICASONE/SALMETEROL 250-50 DISKUS 14 DOSE INH SCH (08:47)
[2018-08-16] MEDS: ONDANSETRON 4 MG/2 ML VIAL IV PRN (08:47)
[2018-08-16] MEDS: MORPHINE 4 MG/1 ML VIAL IV PRN (08:50)
[2018-08-16] MEDS ORDERED: MAGNESIUM SULF RIDER 4 GM in PREMIX 1 EACH IV PRN (09:01)
[2018-08-16] MEDS ORDERED: POTASSIUM CHLORIDE 20 MEQ TABLET PO ONE (09:01)
[2018-08-16] MEDS ORDERED: MAGNESIUM SULF RIDER 2 GM in PREMIX 1 EACH IV PRN (09:01)
[2018-08-16 15:17] VITALS: BP 115/77
== END 2018-08-16 15:10 | disposition home health service (06) | DRG 687 ==
LOC: N.ED 20:28 → N.EDINP 08-11 00:25 → N.5E 08-11 00:45
PROVIDERS: ADMIT Surgery; ATTEND Surgery

== ENCOUNTER 2018-09-16 06:00 | Inpatient (IN) ==
[2018-09-16] MEDS ORDERED: ONDANSETRON 4 MG/2 ML VIAL IV STA ×2 (06:35→07:50)
[2018-09-16] MEDS ORDERED: HYDROmorphone 2 MG/1 ML VIAL IV STA ×3 (06:35→08:57)
[2018-09-16 06:56] LABS: Basophils # 0.1 10*3/uL (0.0-0.2); Basophils % 0.7 % (0.0-0.8); Eosinophils # 0.1 10*3/uL (0.0-0.87); Eosinophils % 1.5 % (0.00-10.9); Hematocrit 28.6 VOL% (42.0-52.0); Hemoglobin 9.2 GM/DL (14.0-18.0); Immature Granulocytes % 0.4 %; Immature Granulocytes Absolute 0.03 #; Lymphocytes # 1.1 10*3/uL (1.4-4.0); Lymphocytes % 14.2 % (21.2-54.2); Mean Corpuscular HGB Conc 32.2 GM/DL (32-36); Mean Corpuscular Hemoglobin 28 PG (27-34); Mean Corpuscular Volume 88.3 FL (87-102); Mean Platelet Volume 9.9 FL (9.6-12.0); Monocytes # 0.5 10*3/uL (0.11-0.8); Monocytes % 6.9 % (1.7-12.7); Neutrophils # 5.6 10*3/uL (1.4-7.4); Neutrophils % 76.3 % (38.7-73.9); Platelet Count 299 T/CUMM (130-400); Red Blood Count 3.24 MC/CUMM (3.8-5.5); Red Cell Distribution Width 13.2 % (9.3-17.3); White Blood Count 7.4 T/CUMM (4-12)
[2018-09-16 07:24] LABS: Alanine Aminotransferase 14 U/L (16-61); Albumin 3.1 G/DL (3.4-5.0); Alkaline Phosphatase 82 U/L (45-117); Aspartate Amino Transferase 12 U/L (0-37); Bilirubin,Total < 0.39 MG/DL (0.2-1.0); Blood Urea Nitrogen 8 MG/DL (7-18); Glucose 134 MG/DL (74-106); Osmolality,Calculated 267.2 MOS/KG (273-304); Sodium 134 MMOL/L (136-145); Total Protein 6.7 G/DL (6.4-8.3)
[2018-09-16] MEDS ORDERED: LIDOCAINE/EPINEPHR/TETRACAINE 3 ML SYRINGE TOP ONE (08:20)
[2018-09-16] MEDS ORDERED: LIDOCAINE 2% TOP JELLY 20 ML VIAL INTRAURETH ONE (08:22)
[2018-09-16] MEDS ORDERED: ACETAMINOPHEN 325 MG TABLET PO PRN (10:20)
[2018-09-16] MEDS ORDERED: DOCUSATE SODIUM 100 MG CAPSULE PO SCH (10:20)
[2018-09-16] MEDS ORDERED: HYDROmorphone 2 MG/1 ML VIAL IV PRN (10:20)
[2018-09-16] MEDS ORDERED: ONDANSETRON 4 MG TABLET PO PRN (11:23)
[2018-09-16] MEDS ORDERED: OXYBUTYNIN 5 MG TABLET PO PRN (11:23)
[2018-09-16] MEDS ORDERED: fentaNYL 100 MCG/2 ML VIAL IV ONE (11:37)
[2018-09-16] MEDS ORDERED: DIAZEPAM 5 MG TABLET PO ONE (11:37)
[2018-09-16] MEDS ORDERED: MIDAZOLAM 10 MG/2 ML VIAL IV ONE (11:37)
[2018-09-16] MEDS: PANTOPRAZOLE 40 MG TABLET PO SCH (12:55)
[2018-09-16] MEDS: SODIUM CHLORIDE 0.9% 1,000 ML IV SCH ×2 (13:09→20:24)
[2018-09-16] MEDS ORDERED: MIDAZOLAM 2 MG/2 ML VIAL ONE (14:50)
[2018-09-16] MEDS ORDERED: fentaNYL 100 MCG/2 ML VIAL ONE (14:50)
[2018-09-16] MEDS: ONDANSETRON 4 MG/2 ML VIAL IV PRN ×2 (16:46→22:21)
[2018-09-16] MEDS: GABAPENTIN 300 MG CAPSULE PO SCH ×2 (16:48→20:21)
[2018-09-16] MEDS: FLUTICASONE/SALMETEROL 250-50 DISKUS 14 DOSE INH SCH (20:20)
[2018-09-16] MEDS: SIMVASTATIN 20 MG TABLET PO SCH (20:21)
[2018-09-16] MEDS: hydrALAZINE 25 MG TABLET PO SCH (20:21)
[2018-09-16] MEDS: SERTRALINE 50 MG TABLET PO SCH (20:21)
[2018-09-16] MEDS: EZETIMIBE 10 MG TABLET PO SCH (20:21)
[2018-09-16] MEDS: DOCUSATE SODIUM 100 MG CAPSULE PO SCH ×2 (20:22→22:23)
[2018-09-16] MEDS ORDERED: SAW PO SCH (21:00)
[2018-09-16] MEDS ORDERED: SOD SEL PO SCH (21:00)
[2018-09-16] MEDS ORDERED: LYC PO SCH (21:00)
[2018-09-16] MEDS ORDERED: BETA PO SCH (21:00)
[2018-09-16] MEDS ORDERED: VIT E PO SCH (21:00)
[2018-09-16] MEDS ORDERED: PYG PO SCH (21:00)
[2018-09-16] MEDS ORDERED: [UNRECOGNIZED DRUG - OTHER] PO SCH (21:00)
[2018-09-17 04:30] LABS: Basophils % 0.6 % (0.0-0.8); Eosinophils % 0.7 % (0.00-10.9); Hematocrit 21.9 VOL% (42.0-52.0); Immature Granulocytes % 0.2 %; Immature Granulocytes Absolute 0.01 #; Lymphocytes % 17.7 % (21.2-54.2); Mean Corpuscular Hemoglobin 29 PG (27-34); Mean Platelet Volume 10.1 FL (9.6-12.0); Monocytes # 0.5 10*3/uL (0.11-0.8); Monocytes % 9.4 % (1.7-12.7); Neutrophils # 3.9 10*3/uL (1.4-7.4); Neutrophils % 71.4 % (38.7-73.9); Platelet Count 221 T/CUMM (130-400); Red Blood Count 2.46 MC/CUMM (3.8-5.5); Red Cell Distribution Width 13.3 % (9.3-17.3); White Blood Count 5.4 T/CUMM (4-12)
[2018-09-17 04:49] LABS: Calcium 8.2 MG/DL (8.5-10.1); Potassium 4.1 MMOL/L (3.5-5.1)
[2018-09-17] MEDS ORDERED: SODIUM CHLORIDE 0.9% 1,000 ML IV PRN (08:31)
[2018-09-17] MEDS ORDERED: FUROSEMIDE 40 MG/4 ML VIAL IV ONE (08:35)
[2018-09-17] MEDS ORDERED: ATENOLOL 50 MG TABLET PO SCH (09:00)
[2018-09-17] MEDS: DOCUSATE SODIUM 100 MG CAPSULE PO SCH ×2 (09:37→20:44)
[2018-09-17] MEDS: POTASSIUM CHLORIDE 10 MEQ TABLET PO SCH (09:37)
[2018-09-17] MEDS: GABAPENTIN 300 MG CAPSULE PO SCH ×3 (09:37→20:44)
[2018-09-17] MEDS: DUTASTERIDE 0.5 MG CAPSULE PO SCH (09:37)
[2018-09-17] MEDS: PANTOPRAZOLE 40 MG TABLET PO SCH (09:37)
[2018-09-17] MEDS: FLUTICASONE/SALMETEROL 250-50 DISKUS 14 DOSE INH SCH ×2 (09:40→20:44)
[2018-09-17] MEDS: SODIUM CHLORIDE 0.9% 1,000 ML IV SCH ×3 (09:40→20:45)
[2018-09-17] MEDS: hydrALAZINE 25 MG TABLET PO SCH ×2 (09:56→20:44)
[2018-09-17] MEDS ORDERED: FUROSEMIDE 40 MG/4 ML VIAL IV SCH (17:00)
[2018-09-17] MEDS: SERTRALINE 50 MG TABLET PO SCH (20:44)
[2018-09-17] MEDS: SIMVASTATIN 20 MG TABLET PO SCH (20:44)
[2018-09-17] MEDS: EZETIMIBE 10 MG TABLET PO SCH (20:44)
[2018-09-18 05:16] LABS: Basophils % 0.3 % (0.0-0.8); Eosinophils # 0.1 10*3/uL (0.0-0.87); Eosinophils % 0.9 % (0.00-10.9); Hematocrit 27.9 VOL% (42.0-52.0); Immature Granulocytes % 0.6 %; Immature Granulocytes Absolute 0.04 #; Lymphocytes # 0.9 10*3/uL (1.4-4.0); Lymphocytes % 13.6 % (21.2-54.2); Mean Corpuscular HGB Conc 33.7 GM/DL (32-36); Mean Corpuscular Hemoglobin 29 PG (27-34); Mean Corpuscular Volume 86.9 FL (87-102); Mean Platelet Volume 10.4 FL (9.6-12.0); Monocytes # 0.6 10*3/uL (0.11-0.8); Neutrophils # 5.2 10*3/uL (1.4-7.4); Neutrophils % 75.6 % (38.7-73.9); Platelet Count 204 T/CUMM (130-400); Red Cell Distribution Width 13.7 % (9.3-17.3); White Blood Count 6.9 T/CUMM (4-12)
[2018-09-18 05:29] LABS: Albumin 2.4 G/DL (3.4-5.0); Bilirubin,Total 0.8 MG/DL (0.2-1.0); Calcium 8.6 MG/DL (8.5-10.1); Osmolality,Calculated 277.4 MOS/KG (273-304); Potassium 3.5 MMOL/L (3.5-5.1); Total Protein 5.9 G/DL (6.4-8.3)
[2018-09-18 05:40] LABS: Hemoglobin 9.4 GM/DL (14.0-18.0); Red Blood Count 3.21 MC/CUMM (3.8-5.5)
[2018-09-18] MEDS: oxyCODONE/ACETAMINOPHEN 5-325 MG TABLET PO PRN (05:44)
[2018-09-18] MEDS: DUTASTERIDE 0.5 MG CAPSULE PO SCH (09:36)
[2018-09-18] MEDS: POTASSIUM CHLORIDE 10 MEQ TABLET PO SCH (09:36)
[2018-09-18] MEDS: ATENOLOL 25 MG TABLET PO SCH (09:36)
[2018-09-18] MEDS: PANTOPRAZOLE 40 MG TABLET PO SCH (09:36)
[2018-09-18] MEDS: hydrALAZINE 25 MG TABLET PO SCH ×2 (09:37→21:39)
[2018-09-18] MEDS: DOCUSATE SODIUM 100 MG CAPSULE PO SCH ×2 (09:37→21:36)
[2018-09-18] MEDS: SODIUM CHLORIDE 0.9% 1,000 ML IV SCH ×2 (09:37→09:38)
[2018-09-18] MEDS: GABAPENTIN 300 MG CAPSULE PO SCH ×3 (09:37→21:36)
[2018-09-18] MEDS: FLUTICASONE/SALMETEROL 250-50 DISKUS 14 DOSE INH SCH ×2 (09:37→21:36)
[2018-09-18] MEDS: SIMVASTATIN 20 MG TABLET PO SCH (21:36)
[2018-09-18] MEDS: SERTRALINE 50 MG TABLET PO SCH (21:36)
[2018-09-18] MEDS: EZETIMIBE 10 MG TABLET PO SCH (21:36)
[2018-09-19 05:09] LABS: Hematocrit 27.9 VOL% (42.0-52.0); Red Cell Distribution Width 13.7 % (9.3-17.3)
[2018-09-19 05:16] LABS: Basophils % 0.3 % (0.0-0.8); Eosinophils # 0.1 10*3/uL (0.0-0.87); Eosinophils % 1.8 % (0.00-10.9); Hemoglobin 9.2 GM/DL (14.0-18.0); Immature Granulocytes % 0.3 %; Immature Granulocytes Absolute 0.02 #; Lymphocytes % 17.2 % (21.2-54.2); Mean Corpuscular Hemoglobin 29 PG (27-34); Mean Corpuscular Volume 87.5 FL (87-102); Mean Platelet Volume 10.5 FL (9.6-12.0); Monocytes # 0.4 10*3/uL (0.11-0.8); Monocytes % 6.7 % (1.7-12.7); Neutrophils # 4.4 10*3/uL (1.4-7.4); Neutrophils % 73.7 % (38.7-73.9); Platelet Count 198 T/CUMM (130-400); Red Blood Count 3.19 MC/CUMM (3.8-5.5)
[2018-09-19 05:20] LABS: Calcium 8.6 MG/DL (8.5-10.1); Osmolality,Calculated 273.5 MOS/KG (273-304); Potassium 3.7 MMOL/L (3.5-5.1)
[2018-09-19] MEDS: DOCUSATE SODIUM 100 MG CAPSULE PO SCH ×2 (08:47→20:37)
[2018-09-19] MEDS: ATENOLOL 25 MG TABLET PO SCH (08:47)
[2018-09-19] MEDS: GABAPENTIN 300 MG CAPSULE PO SCH ×3 (08:47→20:37)
[2018-09-19] MEDS: PANTOPRAZOLE 40 MG TABLET PO SCH (08:47)
[2018-09-19] MEDS: hydrALAZINE 25 MG TABLET PO SCH ×2 (08:47→20:37)
[2018-09-19] MEDS: FLUTICASONE/SALMETEROL 250-50 DISKUS 14 DOSE INH SCH ×2 (08:47→20:38)
[2018-09-19] MEDS: DUTASTERIDE 0.5 MG CAPSULE PO SCH (08:47)
[2018-09-19] MEDS: POTASSIUM CHLORIDE 10 MEQ TABLET PO SCH (08:47)
[2018-09-19] MEDS: DICLOFENAC 1% GEL 100 GM TUBE TOP SCH ×2 (16:10→20:37)
[2018-09-19] MEDS: ONDANSETRON 4 MG/2 ML VIAL IV PRN (17:15)
[2018-09-19] MEDS: EZETIMIBE 10 MG TABLET PO SCH (20:37)
[2018-09-19] MEDS: SERTRALINE 50 MG TABLET PO SCH (20:37)
[2018-09-19] MEDS: SIMVASTATIN 20 MG TABLET PO SCH (20:38)
[2018-09-19] MEDS: SODIUM CHLORIDE 0.9% 1,000 ML IV SCH (21:41)
[2018-09-20 03:05] LABS: Basophils % 0.4 % (0.0-0.8); Eosinophils # 0.1 10*3/uL (0.0-0.87); Eosinophils % 2.2 % (0.00-10.9); Hematocrit 27.7 VOL% (42.0-52.0); Immature Granulocytes % 0.4 %; Immature Granulocytes Absolute 0.02 #; Lymphocytes # 0.8 10*3/uL (1.4-4.0); Mean Corpuscular HGB Conc 32.5 GM/DL (32-36); Mean Corpuscular Hemoglobin 29 PG (27-34); Mean Corpuscular Volume 87.9 FL (87-102); Mean Platelet Volume 9.9 FL (9.6-12.0); Monocytes # 0.3 10*3/uL (0.11-0.8); Monocytes % 6.3 % (1.7-12.7); Neutrophils # 3.8 10*3/uL (1.4-7.4); Neutrophils % 75.7 % (38.7-73.9); Platelet Count 202 T/CUMM (130-400); Red Blood Count 3.15 MC/CUMM (3.8-5.5); Red Cell Distribution Width 13.4 % (9.3-17.3); White Blood Count 5.1 T/CUMM (4-12)
[2018-09-20 03:21] LABS: Calcium 8.9 MG/DL (8.5-10.1); Osmolality,Calculated 272.7 MOS/KG (273-304); Potassium 3.6 MMOL/L (3.5-5.1)
[2018-09-20] MEDS: ATENOLOL 25 MG TABLET PO SCH (11:42)
[2018-09-20] MEDS: DOCUSATE SODIUM 100 MG CAPSULE PO SCH ×2 (11:42→20:34)
[2018-09-20] MEDS: FLUTICASONE/SALMETEROL 250-50 DISKUS 14 DOSE INH SCH ×2 (11:42→20:35)
[2018-09-20] MEDS: PANTOPRAZOLE 40 MG TABLET PO SCH (11:42)
[2018-09-20] MEDS: DUTASTERIDE 0.5 MG CAPSULE PO SCH (11:42)
[2018-09-20] MEDS: hydrALAZINE 25 MG TABLET PO SCH ×2 (11:42→20:33)
[2018-09-20] MEDS: POTASSIUM CHLORIDE 10 MEQ TABLET PO SCH (11:42)
[2018-09-20] MEDS: GABAPENTIN 300 MG CAPSULE PO SCH ×3 (11:42→20:34)
[2018-09-20] MEDS: DICLOFENAC 1% GEL 100 GM TUBE TOP SCH ×2 (11:43→20:35)
[2018-09-20] MEDS: EZETIMIBE 10 MG TABLET PO SCH (20:34)
[2018-09-20] MEDS: SIMVASTATIN 20 MG TABLET PO SCH (20:34)
[2018-09-20] MEDS ORDERED: POLYETHYLENE GLYCOL POWDER 17 GM PACK PO PRN (21:24)
[2018-09-20] MEDS: SERTRALINE 50 MG TABLET PO SCH (21:51)
[2018-09-21 04:47] LABS: Basophils % 0.4 % (0.0-0.8); Eosinophils # 0.1 10*3/uL (0.0-0.87); Eosinophils % 2.7 % (0.00-10.9); Hematocrit 27.7 VOL% (42.0-52.0); Immature Granulocytes % 0.4 %; Immature Granulocytes Absolute 0.02 #; Lymphocytes # 0.8 10*3/uL (1.4-4.0); Mean Corpuscular HGB Conc 32.5 GM/DL (32-36); Mean Corpuscular Hemoglobin 29 PG (27-34); Mean Corpuscular Volume 87.7 FL (87-102); Mean Platelet Volume 10.2 FL (9.6-12.0); Monocytes # 0.3 10*3/uL (0.11-0.8); Monocytes % 6.5 % (1.7-12.7); Neutrophils # 3.3 10*3/uL (1.4-7.4); Platelet Count 212 T/CUMM (130-400); Red Blood Count 3.16 MC/CUMM (3.8-5.5); Red Cell Distribution Width 13.4 % (9.3-17.3); White Blood Count 4.5 T/CUMM (4-12)
[2018-09-21 05:11] LABS: Calcium 8.8 MG/DL (8.5-10.1); Osmolality,Calculated 272.7 MOS/KG (273-304); Potassium 3.9 MMOL/L (3.5-5.1)
[2018-09-21] MEDS: DOCUSATE SODIUM 100 MG CAPSULE PO SCH ×2 (08:43→20:37)
[2018-09-21] MEDS: hydrALAZINE 25 MG TABLET PO SCH ×2 (08:43→20:37)
[2018-09-21] MEDS: DUTASTERIDE 0.5 MG CAPSULE PO SCH (08:43)
[2018-09-21] MEDS: GABAPENTIN 300 MG CAPSULE PO SCH ×3 (08:43→20:37)
[2018-09-21] MEDS: ATENOLOL 25 MG TABLET PO SCH (08:43)
[2018-09-21] MEDS: PANTOPRAZOLE 40 MG TABLET PO SCH (08:43)
[2018-09-21] MEDS: POTASSIUM CHLORIDE 10 MEQ TABLET PO SCH (08:44)
[2018-09-21] MEDS: FLUTICASONE/SALMETEROL 250-50 DISKUS 14 DOSE INH SCH ×2 (08:44→20:38)
[2018-09-21] MEDS: DICLOFENAC 1% GEL 100 GM TUBE TOP SCH ×2 (08:46→20:38)
[2018-09-21] MEDS: EZETIMIBE 10 MG TABLET PO SCH (20:37)
[2018-09-21] MEDS: SERTRALINE 50 MG TABLET PO SCH (20:37)
[2018-09-21] MEDS: SIMVASTATIN 20 MG TABLET PO SCH (20:37)
[2018-09-22] MEDS ORDERED: ceFAZolin 1,000 MG in SYRINGE 1 EACH IV ONE (06:00)
[2018-09-22 06:07] LABS: Basophils % 0.6 % (0.0-0.8); Eosinophils # 0.2 10*3/uL (0.0-0.87); Eosinophils % 3.2 % (0.00-10.9); Hematocrit 28.4 VOL% (42.0-52.0); Hemoglobin 9.3 GM/DL (14.0-18.0); Immature Granulocytes % 0.4 %; Immature Granulocytes Absolute 0.02 #; Lymphocytes # 0.7 10*3/uL (1.4-4.0); Lymphocytes % 15.5 % (21.2-54.2); Mean Corpuscular HGB Conc 32.7 GM/DL (32-36); Mean Corpuscular Hemoglobin 29 PG (27-34); Mean Corpuscular Volume 87.9 FL (87-102); Mean Platelet Volume 9.7 FL (9.6-12.0); Monocytes # 0.4 10*3/uL (0.11-0.8); Monocytes % 7.5 % (1.7-12.7); Neutrophils # 3.4 10*3/uL (1.4-7.4); Neutrophils % 72.8 % (38.7-73.9); Platelet Count 224 T/CUMM (130-400); Red Blood Count 3.23 MC/CUMM (3.8-5.5); Red Cell Distribution Width 13.5 % (9.3-17.3); White Blood Count 4.7 T/CUMM (4-12)
[2018-09-22 06:22] LABS: Calcium 9.1 MG/DL (8.5-10.1); Osmolality,Calculated 273.7 MOS/KG (273-304); Potassium 4.2 MMOL/L (3.5-5.1)
[2018-09-22] MEDS ORDERED: LIDOCAINE 1%/EPI INJ 20 ML VIAL ONE (07:27)
[2018-09-22] MEDS ORDERED: HEPARIN 5,000 UNIT/1 ML VIAL ONE (07:27)
[2018-09-22] MEDS ORDERED: TISSUE ADHESIVE 1 EACH APPLICATOR TOP ONE (08:30)
[2018-09-22] MEDS ORDERED: PROPOFOL 200 MG/20 ML VIAL IV ONE (08:52)
[2018-09-22] MEDS ORDERED: SODIUM CHLORIDE 0.9% 100 ML IV ONE (08:53)
[2018-09-22] MEDS ORDERED: PHENYLEPHRINE 1 MG/10 ML SYRINGE IV ONE (08:53)
[2018-09-22] MEDS ORDERED: fentaNYL 100 MCG/2 ML VIAL ONE (08:53)
[2018-09-22] MEDS ORDERED: ONDANSETRON 4 MG/2 ML VIAL ONE (08:53)
[2018-09-22] MEDS ORDERED: MIDAZOLAM 2 MG/2 ML VIAL ONE (08:53)
[2018-09-22] MEDS: PANTOPRAZOLE 40 MG TABLET PO SCH (09:53)
[2018-09-22] MEDS: DUTASTERIDE 0.5 MG CAPSULE PO SCH (09:53)
[2018-09-22] MEDS: POTASSIUM CHLORIDE 10 MEQ TABLET PO SCH (09:53)
[2018-09-22] MEDS: GABAPENTIN 300 MG CAPSULE PO SCH ×3 (09:53→21:21)
[2018-09-22] MEDS: hydrALAZINE 25 MG TABLET PO SCH ×2 (09:53→21:22)
[2018-09-22] MEDS: DOCUSATE SODIUM 100 MG CAPSULE PO SCH ×2 (09:53→21:21)
[2018-09-22] MEDS: ATENOLOL 25 MG TABLET PO SCH (09:54)
[2018-09-22] MEDS: DICLOFENAC 1% GEL 100 GM TUBE TOP SCH ×2 (09:54→21:22)
[2018-09-22] MEDS: FLUTICASONE/SALMETEROL 250-50 DISKUS 14 DOSE INH SCH ×2 (09:54→21:20)
[2018-09-22] MEDS: EZETIMIBE 10 MG TABLET PO SCH (21:21)
[2018-09-22] MEDS: SIMVASTATIN 20 MG TABLET PO SCH (21:21)
[2018-09-22] MEDS: SERTRALINE 50 MG TABLET PO SCH (21:21)
[2018-09-23 05:51] LABS: Basophils % 0.5 % (0.0-0.8); Eosinophils # 0.2 10*3/uL (0.0-0.87); Eosinophils % 4.1 % (0.00-10.9); Hematocrit 28.8 VOL% (42.0-52.0); Immature Granulocytes % 0.5 %; Immature Granulocytes Absolute 0.02 #; Lymphocytes # 0.7 10*3/uL (1.4-4.0); Mean Corpuscular HGB Conc 31.3 GM/DL (32-36); Mean Corpuscular Hemoglobin 28 PG (27-34); Mean Corpuscular Volume 90.6 FL (87-102); Mean Platelet Volume 10.2 FL (9.6-12.0); Monocytes # 0.3 10*3/uL (0.11-0.8); Monocytes % 7.1 % (1.7-12.7); Neutrophils # 3.2 10*3/uL (1.4-7.4); Neutrophils % 72.8 % (38.7-73.9); Platelet Count 229 T/CUMM (130-400); Red Blood Count 3.18 MC/CUMM (3.8-5.5); Red Cell Distribution Width 13.4 % (9.3-17.3); White Blood Count 4.3 T/CUMM (4-12)
[2018-09-23 06:18] LABS: Albumin 2.6 G/DL (3.4-5.0); Bilirubin,Total 0.7 MG/DL (0.2-1.0); Calcium 8.8 MG/DL (8.5-10.1); Osmolality,Calculated 271.8 MOS/KG (273-304); Potassium 3.9 MMOL/L (3.5-5.1); Total Protein 6.4 G/DL (6.4-8.3)
[2018-09-23] MEDS: DOCUSATE SODIUM 100 MG CAPSULE PO SCH (09:14)
[2018-09-23] MEDS: ATENOLOL 25 MG TABLET PO SCH (09:14)
[2018-09-23] MEDS: oxyCODONE/ACETAMINOPHEN 5-325 MG TABLET PO PRN (09:15)
[2018-09-23] MEDS: PANTOPRAZOLE 40 MG TABLET PO SCH (09:15)
[2018-09-23] MEDS: GABAPENTIN 300 MG CAPSULE PO SCH ×2 (09:16→15:20)
[2018-09-23] MEDS: hydrALAZINE 25 MG TABLET PO SCH (09:16)
[2018-09-23] MEDS: POTASSIUM CHLORIDE 10 MEQ TABLET PO SCH (09:16)
[2018-09-23] MEDS: DUTASTERIDE 0.5 MG CAPSULE PO SCH (09:16)
[2018-09-23] MEDS: FLUTICASONE/SALMETEROL 250-50 DISKUS 14 DOSE INH SCH (09:17)
[2018-09-23] MEDS: DICLOFENAC 1% GEL 100 GM TUBE TOP SCH (09:17)
[2018-09-23] MEDS ORDERED: HEPARIN LOCK FLUSH 500 UNIT/5 ML SYRINGE IV ONE (14:25)
[2018-09-23 22:17] VITALS: BP 98/54
== END 2018-09-23 16:30 | disposition home health service (06) | DRG 660 ==
LOC: N.ED 06:00 → N.EDINP 08:44 → N.4E 10:00
PROVIDERS: ADMIT Internal Medicine; ATTEND Internal Medicine

== ENCOUNTER 2019-05-01 10:02 | Inpatient (IN) ==
[2019-05-01 12:19] LABS: Basophils # 0.1 10*3/uL (0.0-0.2); Basophils % 0.5 % (0.0-0.8); Eosinophils % 0.4 % (0.00-10.9); Hematocrit 37.9 VOL% (42.0-52.0); Immature Granulocytes % 0.5 %; Immature Granulocytes Absolute 0.05 #; Lymphocytes # 0.6 10*3/uL (1.4-4.0); Lymphocytes % 5.4 % (21.2-54.2); Mean Corpuscular HGB Conc 31.7 GM/DL (32-36); Mean Corpuscular Volume 89.8 FL (87-102); Monocytes % 1.7 % (1.7-12.7); Neutrophils % 91.5 % (38.7-73.9); Platelet Count 460 T/CUMM (130-400); Red Blood Count 4.22 MC/CUMM (3.8-5.5); White Blood Count 11.1 T/CUMM (4-12)
[2019-05-01 12:35] LABS: Calcium 8.7 MG/DL (8.5-10.1); Osmolality,Calculated 272.2 MOS/KG (273-304)
[2019-05-01 13:01] LABS: Anisocytosis 1+; Band Neutrophils 1 % (0-10); Lymphocytes 7 % (20-55); Macrocytosis Slight; Microcytosis 1+; Segmented Neutrophils 92 % (50-85); Total Cells Counted 100
[2019-05-01 13:02] LABS: Platelet Estimate Increased
[2019-05-01 13:10] LABS: Apearance,Urine CLEAR (Clear); Bilirubin,Urine Negative (Negative); Blood, Urine Small mg/dL (Negative); Glucose,Urine (UA) Negative (Negative); Ketones,Urine Negative (Negative); Mucus,Urine Occasional /LPF (Occasional); Nitrite,Urine Negative (Negative); Protein,Urine Negative; RBC,Urine 1 /HPF (0-4); Urine Color Yellow (Yellow); Urine Specific Gravity 1.008 (1.001-1.035); Urine Urobilinogen < 2.0 EU/DL (0.2-1.0); WBC,Urine 12 /HPF (0-6)
[2019-05-01] MEDS ORDERED: ONDANSETRON 4 MG/2 ML VIAL IV PRN (14:45)
[2019-05-01] MEDS ORDERED: ACETAMINOPHEN 325 MG TABLET PO PRN (14:45)
[2019-05-01] MEDS ORDERED: NALOXONE 0.4 MG/ML VIAL IV PRN (14:45)
[2019-05-01] MEDS: PIPERACILLIN/TAZOBACTAM 3,375 MG in SODIUM CHLORIDE 0.9% 100 ML IV SCH (16:28)
[2019-05-01] MEDS: MORPHINE 4 MG/1 ML VIAL IV PRN (17:38)
[2019-05-01] MEDS: DOCUSATE SODIUM 100 MG CAPSULE PO SCH (20:28)
[2019-05-02] MEDS: PIPERACILLIN/TAZOBACTAM 3,375 MG in SODIUM CHLORIDE 0.9% 100 ML IV SCH ×3 (00:33→15:49)
[2019-05-02] MEDS: PANTOPRAZOLE 40 MG TABLET PO SCH (09:12)
[2019-05-02] MEDS: MORPHINE 4 MG/1 ML VIAL IV PRN ×3 (09:12→21:34)
[2019-05-02] MEDS: DOCUSATE SODIUM 100 MG CAPSULE PO SCH ×2 (09:12→21:23)
[2019-05-02] MEDS ORDERED: MYLANTA/LIDO VISC 2:1 300 ML BOTTLE SWISH/SWAL PRN (11:57)
[2019-05-02] MEDS ORDERED: ALPRAZolam 0.25 MG TABLET PO PRN (11:57)
[2019-05-02] MEDS ORDERED: ALUMINUM/MAGNES/SIMETH MAX STR 30 ML UDCUP PO PRN (11:57)
[2019-05-02] MEDS ORDERED: traMADol 50 MG TABLET PO PRN (11:57)
[2019-05-02] MEDS ORDERED: LACTULOSE 20 GM/30 ML UDCUP PO PRN (11:57)
[2019-05-02] MEDS ORDERED: LOPERAMIDE 2 MG CAPSULE PO PRN ×2 (11:57)
[2019-05-02] MEDS ORDERED: chlorproMAZINE 25 MG TABLET PO PRN (11:57)
[2019-05-02] MEDS ORDERED: chlorproMAZINE INJ 25 MG in SODIUM CHLORIDE 0.9% 100 ML IV PRN (11:57)
[2019-05-02] MEDS ORDERED: BENZTROPINE 2 MG/2 ML AMP IV PRN (11:57)
[2019-05-02] MEDS ORDERED: MAGNESIUM HYDROXIDE SUSP 30 ML UDCUP PO PRN (11:57)
[2019-05-02] MEDS ORDERED: TEMAZEPAM 7.5 MG CAPSULE PO PRN (11:57)
[2019-05-02] MEDS ORDERED: MYLANTA/LIDO VISC 2:1 300 ML BOTTLE SWISH/SPIT PRN (11:57)
[2019-05-02] MEDS ORDERED: chlorproMAZINE INJ 50 MG in SODIUM CHLORIDE 0.9% 100 ML IV PRN (11:57)
[2019-05-02] MEDS ORDERED: diphenhydrAMINE CAP 25 MG CAPSULE PO PRN (11:57)
[2019-05-02] MEDS ORDERED: PROMETHAZINE INJ 25 MG in SODIUM CHLORIDE 0.9% 50 ML IV PRN (11:57)
[2019-05-02] MEDS: guaiFENesin 200 MG/10 ML UDCUP PO PRN (21:23)
[2019-05-02] MEDS: VANCOMYCIN INJ 1,000 MG in SODIUM CHLORIDE 0.9% 250 ML IV SCH (21:23)
[2019-05-03] MEDS: PIPERACILLIN/TAZOBACTAM 3,375 MG in SODIUM CHLORIDE 0.9% 100 ML IV SCH ×3 (00:32→22:13)
[2019-05-03 02:49] LABS: Basophils # 0.1 10*3/uL (0.0-0.2); Basophils % 0.6 % (0.0-0.8); Eosinophils # 0.2 10*3/uL (0.0-0.87); Hemoglobin 9.7 GM/DL (14.0-18.0); Immature Granulocytes % 0.4 %; Immature Granulocytes Absolute 0.04 #; Lymphocytes # 0.6 10*3/uL (1.4-4.0); Lymphocytes % 6.5 % (21.2-54.2); Mean Corpuscular HGB Conc 32.3 GM/DL (32-36); Mean Platelet Volume 10.3 FL (9.6-12.0); Monocytes % 0.8 % (1.7-12.7); Neutrophils % 89.7 % (38.7-73.9); Platelet Count 334 T/CUMM (130-400); Red Blood Count 3.37 MC/CUMM (3.8-5.5); Red Cell Distribution Width 19.8 % (9.3-17.3); White Blood Count 8.9 T/CUMM (4-12)
[2019-05-03 02:58] LABS: INR 1.3; PT Patient Result 13.6 SECS; Partial Thromboplastin Time 39.4 SECS (0-40)
[2019-05-03 03:05] LABS: Calcium 8.1 MG/DL (8.5-10.1); Osmolality,Calculated 270.2 MOS/KG (273-304)
[2019-05-03 03:13] LABS: Anisocytosis 1+; Eosinophils 2 % (0-10); Lymphocytes 5 % (20-55); Platelet Estimate Adequate; Segmented Neutrophils 93 % (50-85); Total Cells Counted 100
[2019-05-03] MEDS: guaiFENesin 200 MG/10 ML UDCUP PO PRN ×3 (07:49→21:16)
[2019-05-03] MEDS: PANTOPRAZOLE 40 MG TABLET PO SCH (08:56)
[2019-05-03] MEDS: oxyCODONE/ACETAMINOPHEN 5-325 MG TABLET PO PRN ×2 (08:56→21:06)
[2019-05-03] MEDS: DOCUSATE SODIUM 100 MG CAPSULE PO SCH ×2 (08:56→21:06)
[2019-05-03] MEDS: DEXTROMETHORPHAN ER 6 MG/ML 90 ML/BOTTLE PO PRN (17:11)
[2019-05-03] MEDS: VANCOMYCIN INJ 1,000 MG in SODIUM CHLORIDE 0.9% 250 ML IV SCH (21:05)
[2019-05-04] MEDS: PIPERACILLIN/TAZOBACTAM 3,375 MG in SODIUM CHLORIDE 0.9% 100 ML IV SCH ×4 (05:20→22:48)
[2019-05-04] MEDS: guaiFENesin 200 MG/10 ML UDCUP PO PRN (05:23)
[2019-05-04] MEDS: PANTOPRAZOLE 40 MG TABLET PO SCH (09:44)
[2019-05-04] MEDS: DOCUSATE SODIUM 100 MG CAPSULE PO SCH ×2 (09:44→20:50)
[2019-05-04] MEDS: DEXTROMETHORPHAN ER 6 MG/ML 90 ML/BOTTLE PO PRN (15:20)
[2019-05-04] MEDS: oxyCODONE/ACETAMINOPHEN 5-325 MG TABLET PO PRN ×2 (15:31→20:48)
[2019-05-04] MEDS: VANCOMYCIN INJ 1,000 MG in SODIUM CHLORIDE 0.9% 250 ML IV SCH (20:50)
[2019-05-05] MEDS: PIPERACILLIN/TAZOBACTAM 3,375 MG in SODIUM CHLORIDE 0.9% 100 ML IV SCH ×2 (06:00→12:55)
[2019-05-05] MEDS: PANTOPRAZOLE 40 MG TABLET PO SCH (08:29)
[2019-05-05] MEDS: oxyCODONE/ACETAMINOPHEN 5-325 MG TABLET PO PRN ×2 (08:29→18:42)
[2019-05-05] MEDS: DOCUSATE SODIUM 100 MG CAPSULE PO SCH ×2 (08:29→22:14)
[2019-05-05] MEDS ORDERED: DIAZEPAM 5 MG TABLET PO ONE (09:54)
[2019-05-05] MEDS: DEXTROMETHORPHAN ER 6 MG/ML 90 ML/BOTTLE PO PRN (18:42)
[2019-05-05] MEDS: VANCOMYCIN INJ 1,000 MG in SODIUM CHLORIDE 0.9% 250 ML IV SCH (22:14)
[2019-05-06] MEDS: PIPERACILLIN/TAZOBACTAM 3,375 MG in SODIUM CHLORIDE 0.9% 100 ML IV SCH ×4 (06:00→20:50)
[2019-05-06] MEDS ORDERED: DEXAMETHASONE INJ 20 MG in SODIUM CHLORIDE 0.9% 50 ML IV ONE (09:00)
[2019-05-06] MEDS: LEVOFLOXACIN 500 MG TABLET PO SCH (09:16)
[2019-05-06] MEDS: PANTOPRAZOLE 40 MG TABLET PO SCH (09:16)
[2019-05-06] MEDS: DOCUSATE SODIUM 100 MG CAPSULE PO SCH ×2 (09:16→20:48)
[2019-05-06] MEDS: GRANISETRON 1 MG/1 ML VIAL IV SCH (09:17)
[2019-05-06] MEDS ORDERED: VINORELBINE IV ONE (10:00)
[2019-05-06] MEDS ORDERED: SODIUM CHLORIDE 0.9% IV ONE (10:00)
[2019-05-07] MEDS: PIPERACILLIN/TAZOBACTAM 3,375 MG in SODIUM CHLORIDE 0.9% 100 ML IV SCH ×2 (04:44→12:27)
[2019-05-07 05:03] LABS: Basophils % 0.2 % (0.0-0.8); Hematocrit 28.4 VOL% (42.0-52.0); Hemoglobin 9.7 GM/DL (14.0-18.0); Immature Granulocytes % 1.1 %; Immature Granulocytes Absolute 0.06 #; Lymphocytes # 0.5 10*3/uL (1.4-4.0); Lymphocytes % 7.9 % (21.2-54.2); Mean Corpuscular HGB Conc 34.2 GM/DL (32-36); Mean Corpuscular Volume 86.9 FL (87-102); Monocytes % 3.9 % (1.7-12.7); NRBC # 0.04 10*3/uL; Neutrophils % 86.9 % (38.7-73.9); Platelet Count 114 T/CUMM (130-400); Red Blood Count 3.27 MC/CUMM (3.8-5.5); Red Cell Distribution Width 19.2 % (9.3-17.3); White Blood Count 5.7 T/CUMM (4-12)
[2019-05-07 05:20] LABS: Calcium 8.5 MG/DL (8.5-10.1); Osmolality,Calculated 281.4 MOS/KG (273-304)
[2019-05-07] MEDS: GRANISETRON 1 MG/1 ML VIAL IV SCH (08:59)
[2019-05-07] MEDS: PANTOPRAZOLE 40 MG TABLET PO SCH (09:00)
[2019-05-07] MEDS: LEVOFLOXACIN 500 MG TABLET PO SCH (09:00)
[2019-05-07] MEDS: DOCUSATE SODIUM 100 MG CAPSULE PO SCH (09:00)
[2019-05-07] MEDS ORDERED: HEPARIN LOCK FLUSH 500 UNIT/5 ML SYRINGE IV ONE ×2 (15:00→16:09)
[2019-05-07 16:15] VITALS: BP 121/72
== END 2019-05-07 16:43 | disposition home health service (06) | DRG 699 ==
LOC: N.ED 10:02 → N.EDINP 14:07 → N.4E 15:30
PROVIDERS: ADMIT Internal Medicine; ATTEND Internal Medicine